=== PATIENT | male | born 1975 | race Caucasian/White ===

== ENCOUNTER 2021-02-27 08:48 | Outpatient (REF) | payer MEDICARE, MEDICAID, SELFPAY ==
--- NOTE | ~2021-02-27 | US_ITS ---
EXAMINATION: US RETROPERITONEAL LIMITED (RENAL ONLY) CLINICAL INFORMATION: Kidney stones. COMPARISON: Abdominal ultrasound 04/30/2018 CT abdomen 01/06/2008. TECHNIQUE: Real-time imaging of the kidneys. FINDINGS: RIGHT KIDNEY: 11.0 x 5.0 x 6.7 cm (SAG x AP x TRV). The kidney is normal in size, contour, and echogenicity. Renal cortical thickness is normal. No focal parenchymal lesions or hydronephrosis. There are 2 calculi in the midpole of the right kidney, each measuring 0.3 cm in maximum dimension. LEFT KIDNEY: 11.7 x 4.5 x 5.7 cm (SAG x AP x TRV). The kidney is normal in size, contour, and echogenicity. Renal cortical thickness is normal. No focal parenchymal lesions or hydronephrosis. There are 2 calculi in the midpole of the left kidney, and one calculus in the lower pole of left kidney, each measuring 0.3 cm in maximum dimension. US/US renal BI IMPRESSION: Bilateral renal calculi, measuring approximately 0.3 cm each, 2 on the right and 3 on the left. No hydronephrosis.
== END 2021-02-27 08:49 | disposition home or self-care (01) ==
LOC: HO.HMGCX 08:48
PROVIDERS: PCP Family Medicine; Visit Provider Nurse Practitioner
DX: R10.9 Unspecified abdominal pain (principal)
CPT/HCPCS: 76775

== ENCOUNTER 2021-03-06 09:24 | Outpatient (REF) | payer MEDICARE, MEDICAID, SELFPAY | END 2021-03-06 09:25 | disposition home or self-care (01) | LOC: HO.HMGCX 09:24 | PROVIDERS: PCP Family Medicine; Visit Provider Family Medicine | DX: Z13.89 Encounter for screening for other disorder (principal) ==

== ENCOUNTER 2021-03-07 08:24 | Outpatient (REF) | payer MEDICARE, MEDICAID, SELFPAY ==
--- NOTE | ~2021-03-07 | US_ITS ---
EXAMINATION: US PELVIS LIMITED (BLADDER) CLINICAL INFORMATION: Abdominal pain. Rule out stone.. COMPARISON: Previous CT of the abdomen and pelvis December 2007 TECHNIQUE: Real-time imaging of the bladder. FINDINGS: BLADDER: Well distended and normal. Bilateral ureteral jets are demonstrated. Prevoid bladder volume is 160 mL. Postvoid bladder volume is 41 mL. The prostate gland is upper normal in size measuring 4.3 x 2.9 x 4.2 cm, volume 28 mL. US/US bladder IMPRESSION: Small 41 mL postvoid bladder residual otherwise unremarkable exam.
== END 2021-03-07 08:25 | disposition home or self-care (01) ==
LOC: HO.HMGCX 08:24
PROVIDERS: PCP Family Medicine; Visit Provider Family Medicine
DX: R10.9 Unspecified abdominal pain (principal)
CPT/HCPCS: 76857

== ENCOUNTER 2023-11-19 08:14 | Outpatient (REF) | payer MEDICARE, MEDICAID, SELFPAY ==
[2023-11-19 11:14] LABS: MANUAL DIFF FLAG NO
[2023-11-19 11:23] LABS: Basophils Percent Auto 0.9 % (0-2); Eosinophils Absolute Auto 0.2 X10*3/uL (0.0-0.4); Eosinophils Percent Auto 3.6 % (0-4); Hematocrit 44.7 % (42.0-52.0); Hemoglobin 14.8 g/dl (14.0-18.0); Imm Gran Abs Auto 0.02 X10*3/uL (0.00-0.03); Imm Gran Pct Auto 0.4 % (0.0-0.4); Lymphocytes Absolute Auto 1.7 X10*3/uL (1.2-4.9); Lymphocytes Percent Auto 38.6 % (20-40); Mean Corpuscular HGB Conc 33.1 g/dl (31.0-36.0); Mean Corpuscular Hemoglobin 28.9 pg (27.0-33.0); Mean Corpuscular Volume 87.3 fL (80.0-98.0); Mean Platelet Volume 9.5 fL (9.4-12.4); Monocytes Absolute Auto 0.3 X10*3/uL (0.1-1.2); Monocytes Percent Auto 6.3 % (2-11); Neutrophils Absolute Auto 2.3 x10*3/uL (2.0-8.3); Neutrophils Percent Auto 50.2 % (45-73); Platelet Count 281 X10*3/uL (160-400); Red Blood Count 5.12 X10*6/uL (4.60-5.80); Red Cell Distribution Width 12.2 % (11.0-16.0); White Blood Count 4.5 X10*3/uL (4.8-10.8)
[2023-11-19 11:49] LABS: HIV AB/AG Nonreactive (Nonreactive); HIV Num 1 0.05 S/CO (0.00-0.99); ~Hepatitis C Antibody Nonreactive (Nonreactive)
[2023-11-19 11:54] LABS: Alanine Aminotransferase 20 U/L (0-40); Albumin Level 4.5 g/dL (3.5-5.0); Alkaline Phosphatase 63 U/L (39-117); Anion Gap 14 (12-20); Aspartate Amino Transferase 23 U/L (5-37); Bilirubin Direct 0.2 mg/dL (0.0-0.5); Bilirubin Total 0.5 mg/dL (0.0-1.0); Blood Urea Nitrogen 19 mg/dL (9-16); Calcium 9.6 mg/dL (8.4-10.2); Carbon Dioxide 27 mmol/L (22-29); Chloride 106 mmol/L (96-108); Cholesterol 184 mg/dL (<200); Estimated Glomerular Filt Rate > 60; Glucose Random 96 mg/dL (60-115); HDL Cholesterol 46 mg/dL (>40); LDL Cholesterol Calculated 112 mg/dL (<100); Magnesium 2.2 mg/dL (1.6-2.6); Potassium 4.7 mmol/L (3.3-5.1); Sodium 142 mmol/L (135-145); TSH reflex Free T4 1.26 uIU/mL (0.32-4.0); Total Protein 8.2 g/dL (6.5-8.0); Triglycerides 130 mg/dL (<150); Vitamin D 25-OH Total 62.5 ng/mL (>30)
[2023-11-23 16:24] LABS: Testosterone, Total 329 ng/dL (250-1100)
== END 2023-11-19 08:15 | disposition home or self-care (01) ==
LOC: HO.HHCL 08:14
PROVIDERS: Visit Provider Family Medicine
DX: R53.83 Other fatigue (principal); E78.5 Hyperlipidemia, unspecified; Z68.38 Body mass index [BMI] 38.0-38.9, adult; Z11.3 Encounter for screening for infections with a predominantly sexual mode of transmission
CPT/HCPCS: 36415; 80048; 80061; 80076; 82306; 83735; 84403; 84443; 85025; 85027; 86803; 87389

== ENCOUNTER 2024-04-28 10:32 | Outpatient (REF) | payer MEDICARE, MEDICAID, SELFPAY ==
[2024-04-28 12:22] LABS: Cholesterol 235 mg/dL (<200); HDL Cholesterol 38 mg/dL (>40); LDL Cholesterol Calculated 161 mg/dL (<100); Triglycerides 183 mg/dL (<150)
== END 2024-04-28 10:33 | disposition home or self-care (01) ==
LOC: HO.HHCL 10:32
PROVIDERS: Visit Provider Family Medicine
DX: E78.5 Hyperlipidemia, unspecified (principal)
CPT/HCPCS: 36415; 80061

== ENCOUNTER 2024-09-10 07:58 | Outpatient (REF) | payer MEDICARE, MEDICAID, SELFPAY ==
--- OUTSIDE RECORDS SUMMARY | 2024-09-10 08:02 | XMS_ITS | Encounter Summary ---
Author Organization [employer] Address [address] [facility] 7[address] [place] [address] Care Team Providers Care Care Information Associate Name Role Phone Loida Oliver MD Primary Care Provider +1- [phone] Encounter Details Date Type Department Care Team (Late st Contact Info) Description 08/06/2022 Abstract [facility] [address], [place] [phone] Loida Oliver MD [address] [place], [place] [phone] Social History Tobacco Use Types Packs/Day Years Used Date Smoking Tobacco: Never Assessed Sex and Gender Information Value Date Recorded Sex Assigned at Male 04/29/2022 10:14 AM EDT Legal Sex Male 10:14 AM EDT Gender Identity Male 04/29/2022 10:14 AM EDT Sexual Orientation Choose not to disclose 2021 10:14 AM EDT documented as of this encounter Plan of Treatment Not on file documented as of this encounter Procedures Procedure Name Priority Date/Time Associated Diagnosis Comments COLONOSCOPY Routine 01/09/2022 documented in this encounter Results * Colonoscopy (01/09/2022) Colonoscopy Hyperplastic polyp Dr. Wilson us Historical Provider HEALTH MAINTENANCE Final Result documented in this encounter Visit Diagnoses Not on filedocumented in this encounter Care Teams Care Information Associate Relationship Specialty Start Date End Date Loida Oliver MD [address] [place], [place] [phone] PCP - General Family Medicine 06/30/18 documented as of this encounter
--- OUTSIDE RECORDS SUMMARY | 2024-09-10 08:02 | XMS_ITS | Clinical Summary ---
Author Organization [employer] Address [address] [facility] 7[address] [place] [address] Care Team Providers Care Customer Sales Consultant Name Role Phone Loida Oliver MD Primary Care Provider +1- [phone] Allergies Active Allergy Reactions Criticality Noted Date Comments Ciprofloxacin Shortness of breath High 10/13/2019 Other reaction(s): shortness of breath Shellfish Allergy Anaphylaxis High 08/22/2017 Medications Fluticasone-Salm eterol (Advair Diskus) 500-50 MCG/ACT aerosol powderIndication s:Severe persistent asthma without complication Refills 0, Maintenance, 07/30/23 13:20:00 EST 07/30/19 24 Active fluticasone (Flonase Allergy Relief) 50 MCG/ACT nasal sprayIndications :Seasonal allergies 50 mcg. 10/25/19 24 Active EPINEPHrine (EpiPen 2-Quang) 0.3 MG/0.3ML injection syringeIndicatio ns:Anaphylactic shock due to seafood, sequela inject 0.3 milliliter (0.3MG) by intramuscular route once as needed for anaphylaxis 2 each 1 04/28/20 24 Active omalizumab (Xolair) 150 MG/ML injectionIndicat ions:Severe persistent asthma, unspecified whether complicated Inject under the skin every 14 (fourteen) days. Active levalbuterol (Xopenex) 45 MCG/ACT inhalerIndicatio ns:Severe persistent asthma, unspecified whether complicated Inhale. Active atorvastatin (Lipitor) 40 MG tabletIndication s:Dyslipidemia Take 1 tablet (40 mg) by mouth Once per day. 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 -allergy desensitization injections facilitated by Dr. Michael -prescribed refill ClwKhh20/30/24 Hypogonadism in male 09/01/2024 Overview (09/01/2024): Pt getting testosterone from [facility] since May 2024. Reports testosterone was 289. -check labs Assessment & Plan (09/01/2024 12:59 PM EST): Pt getting testosterone from [facility] since May 2024. Reports testosterone was 289. -check labs Class 1 obesity due to exces s calories with serious comorbidity and body mass index (BMI) of 30.0 to 30.9 in adult 04/28/2024 Seasonal allergies 04/28/2024 Overview (04/28/2024): Controlled on Flonase. Assessment & Plan (04/28/2024 9:27 AM EDT): Controlled on Flonase. Other specified health status 05/06/2023 Overview (04/28/2024): -next physical exam due after 04/28/25 -eye care facilitated by [facility] -dental home is at the [facility] -health care proxy given and filed 04/28/24 Assessment & Plan (04/28/2024 9:36 AM EDT): -next physical exam due after 04/28/25 -eye care facilitated by [facility] -dental home is at the [facility] -health care proxy given and filed 04/28/24 Assessment & Plan (05/07/2023 10:46 AM EST): -next physical exam due after 05/07/2024 -eye care facilitated by [facility] -dental home is t the [facility] Finding of above normal blood pressure 2 05/06/2023 Drug-induced gynecomastia 12/08/20172022 Dyslipidemia 09/02/2012 05/06/2023 Overview (09/01/2024): Lab Results Component Value Date CHOL 235 (H) 04/28/2024 CHOL 184 11/19/2023 TRIG 183 (H) 04/28/2024 TRIG 130 11/19/2023 HDL 38 (L) 04/28/2024 HDL 46 11/19/2023 LDLCHOLCAL 161 (H) 04/28/2024 LDLCHOLCAL 112 (H) 11/19/2023 -continue lifestyle modifications -self discontinued atorvastatin 20 mg but chol ws high -atorvastatin 40mg restarted 04/29/24 Assessment & Plan (04/28/2024 9:26 AM EDT): Lab Results Component Value Date CHOL 184 11/19/2023 TRIG 130 11/19/2023 HDL 46 11/19/2023 LDLCHOLCAL 112 (H) 11/19/2023 -continue lifestyle modifications -self discontinued atorvastatin 20 mg, will hod off until new LFTs -ordered LFT's today 04/28/24 Obstructive sleep apnea syndrome 09/02/2012 05/06/2023 Overview (04/28/2024): -tolerant of CPAP -followed by Dr. Murtaza Hu II, MD at [facility] Assessment & Plan (04/28/2024 9:36 AM EDT): -tolerant of CPAP -followed by [facility] Murta[facility] II[facility] Seafood allergy, anaphylaxis 09/02/201212/2022 Overview (04/28/2024): -allergy desensitization injections facilitated by Dr. Alec landaverde has epinephrine on hand, due for new one -prescribed refill 04/28/24 Assessment & Plan (04/28/2024 9:27 AM EDT): -allergy desensitization injections facilitated by Dr. 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 Murtaza Hu II, MD at [facility], seen on 03/19/24 -latest appt with manuscripts curator 05/04/24. CT chest showed no evidence of pulmonary hypertension or embolism, a tiny 2mm left upper lobe nodule, although pt does not smoke, no further follow-up needed. Pt is benefiting from Xolair injections. Has had no serious asthma exacerbations. Follow-up in 6 months and continue Xolair infusions. 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 Murtaza Hu II, MD at [facility], seen last 03/19/24 Resolved Problems Problem Noted Date Diagnosed Date Resolved Date Colon cancer screening 05/06/202305/07 Encounters Date Type Department Care Team Description 09/01/2024 10:15 AM EST Telemedicine [facility] [address] [place] [address] Loida Oliver MD Hypogonadism in male (Primary Dx); Severe persistent asthma, unspecified whether complicated; Dietary counseling; Exercise counseling; Class 1 obesity due to excess calories with serious comorbidity and body mass index (BMI) of 30.0 to 30.9 in adult; Dyslipidemia 09/01/2024 Travel 08/26/2024 Telephone [facility] [address] [place] [address] Loida Oliver MD Appointment Confirmation (Marino book the appt on at 10:15 via phone.) 08/26/2024 Travel 07/05/2024 Telephone [facility] [address] [facility] [place] [address] Faith Caba, diver helper from Last 3 Months Immunizations Name Administration Dates Next Due Hep B, adult 04/28/2024,05/07/2023 INFLUENZA VACCINE QUADRIVALE NT RECOMBINANT PRESERVATIVE FREE RIV4 03/15/2021 Influenza injectable quadrivalent preservative f ree 03/06/2018,02/28/2015 Influenza, IIV3, injectable 04/06/2023, 0 Influenza, Split (incl. purified surface antigen ) 02/11/2014 Influenza, intradermal, quad rivalent, preservative free 04/08/2017 Influenza, seasonal, injectable, preservative fr ee 04/28/2024 Moderna Covid-19 Vaccine 12+ 12/17/2020,11/17/19 21 Pneumococcal Conjugate PCV 13 09/11/2017 Pneumococcal Polysaccharide PPSV23 08/11/2014, Tdap 05/07/2023,09/25/2011 Social History Tobacco Use Types Packs/Day Years Used Date Smoking Tobacco: Never Smokeless Tobacco: Never Tobacco Cessation:Counseling Given: Not Answered Depression Answer Date Recorded Patient Health Questionnaire-9 Score 0 05/07/2023 Patient Health Questionnaire-9 Score 0 05/07/2023 Last PHQ-9: Questionnaire Data Not on file 1 07/07/2022 Housing Stability Answer Date Recorded What is your housing situation today? I have ashley cyr 04/15/[address] you li ve. Do you have problems with any of the following? None of the above 04/15/2024 Food Insecurity Answer Date Recorded Within the past 12 months, y ou worried that your food would run out before you got money to buy more: Never True 04/28/2023 Within the past 12 months,th e food you bought just didn't last and you didn't have enough money to get more: Never True Transportation Answer Date Recorded In the past 12 months, has l ack of transportation kept you from medical appts, meetings, work or from getting things needed for daily living? No 04/28/2023 Utilities Answer Date Recorded In the past 12 months, has t he electric, gas, oil or water company threatened to shut off services in your home? No 04/28/2023 Depression Answer Date Recorded Patient Health Questionnaire-2 Score 0 05/07/2023 Internet Access Answer Date Recorded Internet Access Q1 Yes 04/15/2024 Internet Access Q2 Not on file 04/15/2024 Sex and Gender Information Value Date Recorded Sex Assigned at Male 04/29/2022 10:14 AM EDT Legal Sex Male 10:14 AM EDT Gender Identity Male 04/29/2022 10:14 AM EDT Sexual Orientation Choose not to disclose 2021 10:14 AM EDT Last Filed Vital Signs Vital Sign Reading Time Taken Comments Blood Pressure 130/68 04/28/2024 9:08 AM EDT Pulse 58 04/28/2024 9:08 AM EDT Temperature 36.4 ??C (97.6 ??F) 04/28/2024 9:08 AM ED T Respiratory Rate 18 04/28/2024 9:08 AM EDT Oxygen Saturation 98% 04/28/2024 9:08 AM EDT Inhaled Oxygen Concentration - - Weight 98 kg (216 lb) 04/28/2024 9:08 AM EDT Height 177.8 cm (5' 10 ) 04/28/2024 9:08 AM EDT Body Mass Index 30.99 04/28/2024 9:08 AM EDT Plan of Treatment Health Maintenance Due Date Last Done Comments CT Colonography 1975 FIT DNA/Cologuard 1975 FIT 1975 FOBT 1975 Sigmoidoscopy 1975 Depression Screening 05/07/2024 05/07/2023, 05/07/20 23 Hepatitis B Vaccines (3 of 3 - 19+ 3-dose series) 06/23/2024 04/28/2024, 05/07/2023 Pneumococcal Vaccine: Pediatrics (0 to 5 Years) and At-Risk Patients (6 to 49) Years) (3 of 3 - PCV20 or PCV21) 2025 09/11/2017, 08/11/2014, 03/02/2009 Zoster Vaccines (1 of 2) 2025 SDOH Screening 04/15/2025 04/15/2024 Alcohol/Substance Use Screening 04/28/2025 04/28/2024 COVID-19 Vaccine (3 - season) 2025 12/17/2020, 11/16/2020 Postponed from 02/29/2024 (Patient Refused) Tobacco Screening 04/28/2025 04/28/2024 Family Planning (PISQ) 09/01/2025 09/01/2024 Lipid Panel 04/28/2029 04/28/2024, 10/29, 12/19/2021, Additional history exists Colonoscopy 01/10/2032 01/09/2022 Colorectal Cancer Screening 01/10/2032 DTaP/Tdap/Td Vaccines (3 - Td or Tdap) 05/07/2033 05/07/2023, 09/25/2011 RSV Patients and Patients Aged 60 years or older (1 - 1-dose 75+ series) 2050 HIV Screening Completed 11/19/2023 Hepatitis C Screening Completed 11/19/2023 Influenza Vaccine Completed 04/28/2024, , 04/02/2023, Additional history exists HIB Vaccines Aged Out No longer eligi ble based on patient's age to complete this topic HPV Vaccines Aged Out No longer eligi ble based on patient's age to complete this topic Hepatitis A Vaccines Aged Out No long er eligible based on patient's age to complete this topic IPV Vaccines Aged Out No longer eligi ble based on patient's age to complete this topic Meningococcal Vaccine Aged Out No debo finesse eligible based on patient's age to complete this topic RSV under 20 months Aged Out No longe r eligible based on patient's age to complete this topic Rotavirus Vaccines Aged Out No longer eligible based on patient's age to complete this topic Procedures Procedure Name Priority Date/Time Associated Diagnosis Comments LIPID PANEL, STANDARD Routine 04/28/2024 10:33 AM EDT Dyslipidemia HEPATITIS C AB W/REFL TO HCV RNA, QN, PCR Routine 11/19/2023 8:16 AM EDT Routine screening for STI (sexually transmitted infection) HIV 1/2 ANTIGEN/ANTIBODY, FOURTH GENERATION W/RFL Routine 11/19/2023 8:16 AM EDT Routine screening for STI (sexually transmitted infection) HM COLONOSCOPY Routine 01/09/2022 from Last 3 Months or Most Recently Relevant to Health Maintenance Results * (ABNORMAL) Lipid Panel, Standard (04/28/2024 10:33 AM EDT) Triglycerides 183(H) <150 mg/dL [facility] Comment:Desirable Triglyceri de: less than 150 mg/dLBorderline High Triglyceride 150-199 mg/dLHigh Triglyceride: 200-499 mg/dLVery High Triglyceride: greater than or equal to 5OO mg/dL Cholesterol 235(H) <200 mg/dL [facility] Comment:Desirable Cholestero l: less than 200 mg/dLBorderline High Cholesterol: 200-239 mg/dLHigh Cholesterol: greater than 239 mg/dL LDL Cholesterol Calculated 161(H) <100 mg/dL [facility] Comment:Desirable LDL: less than 100 mg/dLNear Optimal/Above Optimal LDL: 110- 129 mg/dLBorderline High LDL: 130-159 mg/dLHigh LDL: 160-189 mg/dLVery High LDL: greater than or equal to 190 mg/dL HDL Cholesterol 38(L) >40 mg/dL [facility] Comment:Desirable HDL: great er than 40 mg/dL Note: This HDL assay may give artificially low results in patients with liver disease. Blood Venous blood specimen / Unknown 04/28/2024 10:33 AM EDT 04/28/2024 11:36 AM EDT us Loida Oliver MD LAB BLOOD ORDERABLES Final Result [facility] [address] [place] [phone] [phone] * Hepatitis C Antibody with Reflex to HCV, RNA, Quantitative, Real-Time PCR (11/19/2023 8:16 AM EDT) Hepatitis C Antibody Nonreactive Nonreactive [facility] Comment:Antibodies to HCV no t detected; does not exclude early acuteHCV infection. Blood Venous blood specimen / Unknown 11/19/2023 8:16 AM EDT 11/19/2023 11:04 AM EDT Loida Oliver MD LAB BLOOD ORDERABLES Final Result Performing Organization Address City/[facility]/ZIP Co de Phone Number [facility] [address] [place] [address] [phone] * HIV-1/2 Antigen and Antibodies, Fourth Generation, with Reflexes (11/19/2023 8:16 AM EDT) [facility] HIV AB/AG Nonreactive Nonreactive [facility] Comment:HIV-1 p24 Ag and/or HIV-1/HIV-2 Ab not detected.A test result that is nonreactive does not exclude thepossibility of exposure to or infection with HIV-1 and/orHIV-2. Nonreactive results in this assay for individualswith prior exposure to HIV-1 and/or HIV-2 may be due toantigen and antibody levels that are below the limit ofdetection of this assay.The [employer] HIV Ag/Ab Combo assay result andsupplemental assay results should be interpreted inconjunction with the patient's clinical presentation,history and other laboratory results. If the results areinconsistent with clinical evidence, additional testing issuggested to confirm the result. Blood Venous blood specimen / Unknown 11/19/2023 8:16 AM EDT 11/19/2023 11:04 AM EDT Loida Oliver MD LAB BLOOD ORDERABLES Final Result Performing Organization Address City/[facility]/ZIP Co de Phone Number [facility] [address] [place] [address] [phone] * Hm Colonoscopy (01/09/2022) Pathologist [facility] Colonoscopy Hyperplastic polyp Dr. Wilson Madina Whitten MD HEALTH MAINTENANCE Final Result from Last 3 Months or Most Recently Relevant to Health Maintenance Insurance [facility] STANDARD MEDICARE Advance Directives Documents on File Type Date Recorded Patient Engineering Lab Technician Expl anation Advance Directives and Living Will 04/29/2024 2:03 PM Health Care Proxy Care Teams Customer Sales Consultant Relationship Specialty Start Date End Date Benito, MD Loida [address] [place] [id number] PCP - General Family Medicine 06/30/18
--- OUTSIDE RECORDS SUMMARY | 2024-09-10 08:02 | XMS_ITS | Encounter Summary ---
Author Organization [employer] Address [address] [facility] [address] [place] [address] Care Team Providers Care Advertising Columnist Name Role Phone Loida Oliver MD Primary Care Provider +1- [phone] Reason for Visit * Reason Onset Date Comments Appointment Confirmation 08/26/2024 Marino book the appt on at 10:15 via phone. Encounter Details Date Type Department Care Team ([facility] Contact Info) Description 08/26/2024 Telephone [facility] [address], [place] [phone] Loida Oliver MD [address] [place], [place] [phone] Appointment Confirmation (Marino book the appt on at 10:15 via phone.) Social History Tobacco Use Types Packs/Day Years Used Date Smoking Tobacco: Never Smokeless Tobacco: Never Depression Answer Date Recorded Patient Health Questionnaire-9 [...] AM EDT documented as of this encounter Miscellaneous Notes * Telephone Encounter - Meeta Ho MA - 08/26/2024 1:30 PM EST Marino book the appt on at 10:15 via phone. documented in this encounter Plan of Treatment Not on file documented as of this encounter Visit Diagnoses Not on filedocumented in this encounter Additional Health Concerns Assessment Noted Time PHQ-9 Depression Total Score: 0 05/07/20 23 10:28 AM EST documented as of this encounter Care Teams Advertising Columnist Relationship Specialty Start Date End Date Loida Oliver MD [address] [place] [address] PCP - General Family Medicine 06/30/18 documented as of this encounter
--- OUTSIDE RECORDS SUMMARY | 2024-09-10 08:02 | XMS_ITS | Encounter Summary ---
Author Organization [employer] Address [address] [place] [address] Care Team Providers Care Liner Man Name Role Phone Loida Oliver MD Primary Care Provider +1- [phone] Encounter Details Date Type Department Care Team (Latest Contact Info) Description 09/01/2024 Travel Social History Tobacco Use Types Packs/Day Years [...] documented as of this encounter Care Teams Liner Man Relationship Specialty Start Date End Date Loida Oliver MD [address] [place] [address] PCP - General Family Medicine 06/30/18 documented as of this encounter
--- OUTSIDE RECORDS SUMMARY | 2024-09-10 08:02 | XMS_ITS | Encounter Summary ---
Author Organization [employer] Address [address] [facility] [address] [place] [address] Care Team Providers Care Extension Service Advisor Name Role Phone Loida Oliver MD Primary Care Provider +1- [phone] Encounter Details Date Type Department Care Team (Late st Contact Info) Description 11/05/2023 Orders Only [facility] MEDICINE [address], [place] [phone] Loida Oliver MD [address] [place], [place] [phone] Other fatigue (Primary Dx); Acute anxiety; Routine screening for STI (sexually transmitted infection); Dyslipidemia; Severe persistent asthma without complication; Body mass index (BMI) 38.0-38.9, adult Social History Tobacco Use Types Packs/Day Years Used Date Smoking Tobacco: Never Smokeless Tobacco: Never Depression Answer Date Recorded Patient Health Questionnaire-9 Score 0 05/07/2023 Patient Health Questionnaire-9 Score 0 05/07/2023 Last PHQ-9: Questionnaire Data Not on file 1 07/07/2022 Housing Stability Answer Date Recorded What is your housing situation today? I am not s ure 04/28/[address] you li ve. Do you have problems with any of the following? None of the above 04/28/2023 Food Insecurity Answer Date Recorded Within the [...] Recorded Patient Health Questionnaire-2 Score 0 05/07/2023 Sex and Gender Information Value Date Recorded Sex Assigned at Male 04/29/2022 10:14 AM EDT Legal Sex Male 10:14 AM EDT Gender Identity Male 04/29/2022 10:14 AM EDT Sexual Orientation Choose not to disclose 2021 10:14 AM EDT documented as of this encounter Plan of Treatment Not on file documented as of this encounter Procedures Procedure Name Priority Date/Time Associated Diagnosis Comments VITAMIN D,25-OH,TOTAL,IA Routine 11/19/2023 8:16 AM EDT Other fatigue Body mass index (BMI) 38.0-38.9, adult TSH W/REFLEX TO FT4 Routine 11/19/2023 8 :16 AM EDT Other fatigue CBC WITH AUTO DIFFERENTIAL Routine 11/19/2023 8:16 AM EDT Other fatigue HEPATITIS C AB W/REFL TO HCV RNA, QN, PCR Routine 11/19/2023 8:16 AM EDT Routine screening for STI (sexually transmitted infection) HIV 1/2 ANTIGEN/ANTIBODY, FOURTH GENERATION W/RFL Routine 11/19/2023 8:16 AM EDT Routine screening for STI (sexually transmitted infection) CBC Routine 11/19/2023 8:16 AM EDT Other fatigue TESTOSTERONE, TOTAL, MALES (ADULT), IA Routine 11/19/2023 8:16 AM EDT Other fatigue MAGNESIUM Routine 11/19/2023 8:16 AM EDT Other fatigue HEPATIC FUNCTION PANEL Routine 11/19/2023 8:16 AM EDT Dyslipidemia LIPID PANEL, STANDARD Routine 11/19/2023 8:16 AM EDT Dyslipidemia BASIC METABOLIC PANEL Routine 11/19/2023 8:16 AM EDT Other fatigue documented in this encounter Results * Hepatitis C Antibody with Reflex to HCV, RNA, Quantitative, Real-Time PCR (11/19/2023 8:16 AM EDT) Hepatitis C Antibody Nonreactive Nonreactive [facility] Comment:Antibodies to HCV no t detected; does not exclude early acuteHCV infection. Blood Venous blood specimen / Unknown 11/19/2023 8:16 AM EDT 11/19/2023 11:04 AM EDT Loida Oliver MD LAB BLOOD ORDERABLES Final Result [facility] [address] [place] [phone] * HIV-1/2 Antigen and Antibodies, Fourth Generation, with Reflexes (11/19/2023 8:16 AM EDT) HIV AB/AG Nonreactive Nonreactive [facility] Comment:HIV-1 p24 Ag and/or HIV-1/HIV-2 Ab not detected.A test result that is nonreactive does not exclude thepossibility of exposure to or infection with HIV-1 and/orHIV-2. Nonreactive results in this assay for individualswith prior exposure to HIV-1 and/or HIV-2 may be due toantigen and antibody levels that are below the limit ofdetection of this assay.The [email or web address] HIV Ag/Ab Combo assay result andsupplemental assay results should be interpreted inconjunction with the patient's clinical presentation,history and other laboratory results. If the results areinconsistent with clinical evidence, additional testing issuggested to confirm the result. Blood Venous blood specimen / Unknown 11/19/2023 8:16 AM EDT 11/19/2023 11:04 AM EDT Loida Oliver MD LAB BLOOD ORDERABLES Final Result Performing Organization Address [facility]/ZIP Co de Phone Number [facility] [address] [place] [phone] * Vitamin D, 25-Hydroxy, Total, Immunoassay (11/19/2023 8:16 AM EDT) Vitamin D 25-OH Total 62.5 >30 ng/mL [facility] Comment:Health Based Referen ce Values*< 20 ng/mL Vrmzdyzye21-62 ng/mL Insufficient> 30 ng/mL Sufficient*Atiya SANCHES. N Engl J Med. 2007;357:266-280Care must be taken in interpreting Vitamin D results fromdifferent laboratories and methodologies. Published datademonstrated that results from patients undergoinghemodialysis may show a negative bias when tested withvarious automated 25-OH vitamin D assays when compared toLC-MS/MS.When testing samples from patients whose predominant form ofVitamin D is Vitamin D2, such as patients receiving VitaminD2 supplementation, results that are subtherapeutic shouldbe confirmed with another method such as LC-MS/MS. Blood 11/19/2023 8:16 AM EDT 11/19/2023 11:04 AM EDT Loida Oliver MD LAB BLOOD ORDERABLES Final Result Performing Organization Address [facility]/ZIP Co de Phone Number [facility] [address] [place] [phone] * CBC auto differential (11/19/2023 8:16 AM EDT) Neutrophils Percent Auto 50.2 45 - 73 % [facility] Imm Gran Pct Auto 0.4 0.0 - 0.4 % [facility] Lymphocytes Percent Auto 38.6 20 - 40 % [facility] Monocytes Percent Auto 6.3 2 - 11 % [facility] Eosinophils Percent Auto 3.6 0 - 4 % [facility] Basophils Percent Auto 0.9 0 - 2 % [facility] Neutrophils Absolute Auto 2.3 2.0 - 8.3 x10*3/uL [facility] Imm Gran Abs Auto 0.02 0.00 - 0.03 X10*3/uL [facility] Lymphocytes Absolute Auto 1.7 1.2 - 4.9 X10*3/uL [facility] Monocytes Absolute Auto 0.3 0.1 - 1.2 X10*3/uL [facility] Eosinophils Absolute Auto 0.2 0.0 - 0.4 X10*3/uL [facility] Basophils Absolute Auto 0.0 0.0 - 0.2 X10*3/uL [facility] Blood Venous blood specimen / Unknown 11/19/2023 8:16 AM EDT 11/19/2023 11:04 AM EDT Loida Oliver MD LAB BLOOD ORDERABLES Final Result Performing Organization Address City/[facility]/ZIP Co de Phone Number [facility] [address] [place] [phone] * TSH with Reflex to Free T4 (11/19/2023 8:16 AM EDT) Pathologist [facility] TSH reflex Free T4 1.26 0.32 - 4.0 uIU/mL [facility] Blood 11/19/2023 8:16 AM EDT 11/19/2023 11:04 AM EDT Loida Oliver MD LAB BLOOD ORDERABLES Final Result Performing Organization Address City/[facility]/ZIP Co de Phone Number [facility] [address] [place] [phone] * (ABNORMAL) Basic Metabolic Panel (11/19/2023 8:16 AM EDT) Pathologist [facility] Sodium 142 135 - 145 mmol/L [facility] Potassium 4.7 3.3 - 5.1 mmol/L [facility] Chloride 106 96 - 108 mmol/L [facility] Carbon Dioxide 27 22 - 29 mmol/L [facility] Anion Gap 14 12 - 20 [facility] Urea Nitrogen (BUN) 19(H) 9 - 16 mg/dL [facility] Creatinine, Serum 0.95 0.5 - 1.4 mg/dL [facility] Estimated Glomerular Filt Rate >60 [facility] Comment:NOTE: For -Am erican individuals, multiply the result by 1.210.Chronic Kidney Disease: Estimated GFR < 60 mL/min/1.80u0Essjmz Kidney Disease: Estimated GFR < 15 mL/min/1.73m2 Glucose 96 60 - 115 mg/dL [facility] Calcium 9.6 8.4 - 10.2 mg/dL [facility] Blood Venous blood specimen / Unknown 11/19/2023 8:16 AM EDT 11/19/2023 11:04 AM EDT us Loida Oliver MD LAB BLOOD ORDERABLES Final Result [facility] [address] [place] [phone] * (ABNORMAL) Lipid Panel, Standard (11/19/2023 8:16 AM EDT) Triglycerides 130 <150 mg/dL [facility] Comment:Desirable Triglyceri de: less than 150 mg/dLBorderline High Triglyceride 150-199 mg/dLHigh Triglyceride: 200-499 mg/dLVery High Triglyceride: greater than or equal to 5OO mg/dL Cholesterol 184 <200 mg/dL [facility] Comment:Desirable Cholestero l: less than 200 mg/dLBorderline High Cholesterol: 200-239 mg/dLHigh Cholesterol: greater than 239 mg/dL LDL Cholesterol Calculated 112(H) <100 mg/dL [facility] Comment:Desirable LDL: less than 100 mg/dLNear Optimal/Above Optimal LDL: 110- 129 mg/dLBorderline High LDL: 130-159 mg/dLHigh LDL: 160-189 mg/dLVery High LDL: greater than or equal to 190 mg/dL HDL Cholesterol 46 >40 mg/dL [facility] Comment:Desirable HDL: great er than 40 mg/dL Note: This HDL assay may give artificially low results in patients with liver disease. Blood Venous blood specimen / Unknown 11/19/2023 8:16 AM EDT 11/19/2023 11:04 AM EDT Loida Oliver MD LAB BLOOD ORDERABLES Final Result Performing Organization Address [facility]/ZIP Co de Phone Number [facility] [address] [place] [phone] * Magnesium (11/19/2023 8:16 AM EDT) Magnesium 2.2 1.6 - 2.6 mg/dL [facility] Blood Venous blood specimen / Unknown 11/19/2023 8:16 AM EDT 11/19/2023 11:04 AM EDT Loida Oliver MD LAB BLOOD ORDERABLES Final Result Performing Organization Address [facility] de Phone Number [facility] [address] [place] [phone] * Testosterone, Total, males (Adult), IA (11/19/2023 8:16 AM EDT) Testosterone, Total 329 250 - 1100 ng/dL [facility] Comment:For additional infor laura, please refer tohttp://education.Ready.[employer]/faq/[email or web address](This link is being provided for informational/educational purposes only.)This test was developed and its analytical performancecharacteristics have been determined by [email or web address] [place], [place]. It hasnot been cleared or approved by the U.S. Food and DrugAdministration. This assay has been validated pursuantto the CLIA regulations and is used for clinicalpurposes.THIS TEST WAS PERFORMED AT:[employer] [id number] [place] [address]UKEPCLAINDIRA CHEEK MD,PHD Blood Venous blood specimen / Unknown 11/19/2023 8:16 AM EDT 11/19/2023 11:04 AM EDT Loida Oliver MD LAB BLOOD ORDERABLES Final Result Performing Organization Address City/[facility]/ZIP Co de Phone Number [facility] [address] [place] [phone] * (ABNORMAL) CBC (11/19/2023 8:16 AM EDT) White Blood Count 4.5(L) 4.8 - 10.8 X10*3/uL [facility] Red Blood Count 5.12 4.60 - 5.80 X10*6/uL [facility] Hemoglobin 14.8 14.0 - 18.0 g/dl [facility] Hematocrit 44.7 42.0 - 52.0 % [facility] Mean Corpuscular Volume 87.3 80.0 - 98.0 fL [facility] Mean Corpuscular Hemoglobin 28.9 27.0 - 33.0 pg [facility] Mean Corpuscular HGB Conc 33.1 31.0 - 36.0 g/dl [facility] Red Cell Distribution Width 12.2 11.0 - 16.0 % [facility] Platelet Count 281 160 - 400 X10*3/uL [facility] Mean Platelet Volume 9.5 9.4 - 12.4 fL [facility] NRBC Pct Auto 0.0 0.0 - 0.2 /100WBC [facility] NRBC Abs Auto 0.000 0.0 - 0.012 X10*3/uL [facility] Blood Venous blood specimen / Unknown 11/19/2023 8:16 AM EDT 11/19/2023 11:04 AM EDT Loida Oliver MD LAB BLOOD ORDERABLES Final Result [facility] [address] [place] [phone] * (ABNORMAL) Hepatic Function Panel (11/19/2023 8:16 AM EDT) Bilirubin, Total 0.5 0.0 - 1.0 mg/dL [facility] Bilirubin, Direct 0.2 0.0 - 0.5 mg/dL [facility] Aspartate Amino Transferase 23 5 - 37 U/L [facility] Alanine Aminotransferase 20 0 - 40 U/L [facility] Total Protein 8.2(H) 6.5 - 8.0 g/dL [facility] Albumin Level 4.5 3.5 - 5.0 g/dL [facility] Alkaline Phosphatase 63 39 - 117 U/L [facility] Blood Venous blood specimen / Unknown 11/19/2023 8:16 AM EDT 11/19/2023 11:04 AM EDT us Loida Oliver MD LAB BLOOD ORDERABLES Final Result [facility] [address] [place] [phone] documented in this encounter Visit Diagnoses Diagnosis Other fatigue- Primary Acute anxiety Routine screening for STI (sexually transmitted infection) Screening examination for venereal disease Dyslipidemia Other and unspecified hyperlipidemia Severe persistent asthma without complication Body mass index (BMI) 38.0-38.9, adult documented in this encounter Additional Health Concerns Assessment Noted Time PHQ-9 Depression Total Score: 0 05/07/20 23 10:28 AM EST documented as of this encounter Care Teams Extension Service Advisor Relationship Specialty Start Date End Date Loida Oliver MD [address] [place] [phone] PCP - General Family Medicine 06/30/18 documented as of this encounter
--- OUTSIDE RECORDS SUMMARY | 2024-09-10 08:02 | XMS_ITS | Encounter Summary ---
Author Organization [employer] Address [address] [facility] [address] [place] [address] Care Team Providers Care Soil Specialist Name Role Phone Loida Oliver MD Primary Care Provider +1- [phone] Encounter Details Date Type Department Care Team (Late st Contact Info) Description 09/01/2024 10:15 AM EST Telemedicine [facility] MEDICINE [address] [place] [address] Loida Oliver MD [address] [place] [address] Hypogonadism in male (Primary Dx); Severe persistent asthma, unspecified whether complicated; Dietary counseling; Exercise counseling; Class 1 obesity due to excess calories with serious comorbidity and body mass index (BMI) of 30.0 to 30.9 in adult; Dyslipidemia Social History Tobacco Use Types Packs/Day Years [...] AM EDT documented as of this encounter Progress Notes * Loida Oliver MD - 09/01/2024 10:15 AM EST Subjective Patient ID: Juancarlos oH is a 49 y.o. male with PMHx of severe asthma, obesity and dyslipidemia who presents for follow up cholesterol. Pt reports he started getting testosterone injections in May of 2024 and i feet great but has concerns. He is getting medication form [facility]. He repots his testosterone with them was 289. He reports he has labs in the future and I asked him to please have lab ml copy to me. Problem List Items Addressed This Visit Hypogonadism in male - Primary Pt getting testosterone from [facility] since May 2024. Reports testosterone was 289. -check labs Relevant Orders Lipid Panel, Standard Hepatic Function Panel CBC auto differential Severe persistent asthma Class 1 obesity due to excess calories with serious comorbidity and body mass index (BMI) of 30.0 to 30.9 in adult Dyslipidemia Relevant Orders Lipid Panel, Standard Hepatic Function Panel CBC auto differential Other Visit Diagnoses Dietary counseling Exercise counseling Patient gave verbal consent to be seen in this manner. A complete assessment and plan is detailed in the note, all of which were conducted remotely using virtual audio technology. Patient identity was verbally confirmed with 2 identifiers at the start of the visit. Patient verbalized being located in the [facility] during the televisit. Provider was located at a secure location duringthe visits. I identified myself and credentials. Pt consented to telephone visit, and understand that they have the option to seek in-person care. I, Angelita Langford, am serving as a scribe to document services personally performed by Dr. Preciado, based on the patient's response to questions by provider and providers statements to me. documented in this encounter Miscellaneous Notes * Assessment & Plan Note - Loida Oliver MD - 09/01/2024 12:59 PM EST Associated Problem(s): Hypogonadism in male Pt getting testosterone from [facility] since May 2024. Reports testosterone was 289. -check labs documented in this encounter Plan of Treatment Scheduled Orders Name Type Priority Associated Diagnoses Orde r Schedule Lipid Panel, Standard Lab Routine Dyslipidemia Hypogonadism in male Expected: 09/01/2024 (Approximate), Expires: 09/01/2025 Hepatic Function Panel Lab Routine Dyslipidemia Hypogonadism in male Expected: 09/01/2024 (Approximate), Expires: 09/01/2025 CBC auto differential Lab Routine Dyslipidemia Hypogonadism in male Expected: 09/01/2024, Expires: 09/01/2025 documented as of this encounter Visit Diagnoses Diagnosis Hypogonadism in male- Primary Severe persistent asthma, unspecified whether complicated Dietary counseling Dietary surveillance and counseling Exercise counseling Class 1 obesity due to excess calories with serious comorbidity and body mass index (BMI) of 30.0 to 30.9 in adult Dyslipidemia Other and unspecified hyperlipidemia documented in this encounter Additional Health Concerns Assessment Noted Time PHQ-9 Depression Total Score: 0 05/07/20 23 10:28 AM EST documented as of this encounter Care Teams Soil Specialist Relationship Specialty Start Date End Date Loida Oliver MD [address] [place] [phone] PCP - General Family Medicine 06/30/18 documented as of this encounter
--- OUTSIDE RECORDS SUMMARY | 2024-09-10 08:02 | XMS_ITS | Encounter Summary ---
Author Organization [employer] Address [address] [facility] [address] [place] [address] Care Team Providers Care Residential Framing Carpenter Name Role Phone Loida Oliver MD Primary Care Provider +1- [phone] Encounter Details Date Type Department Care Team (Latest Contact Info) Description 08/26/2024 Travel Social History Tobacco Use Types Packs/Day [...] documented as of this encounter Care Teams Residential Framing Carpenter Relationship Specialty Start Date End Date Loida Oliver MD [address] [place] [address] PCP - General Family Medicine 06/30/18 documented as of this encounter
[2024-09-10 11:23] LABS: MANUAL DIFF FLAG NO
[2024-09-10 11:38] LABS: Basophils Percent Auto 0.5 % (0-2); Eosinophils Absolute Auto 0.2 X10*3/uL (0.0-0.4); Hematocrit 47.8 % (42.0-52.0); Hemoglobin 15.6 g/dl (14.0-18.0); Imm Gran Abs Auto 0.02 X10*3/uL (0.00-0.03); Imm Gran Pct Auto 0.3 % (0.0-0.4); Lymphocytes Absolute Auto 2.3 X10*3/uL (1.2-4.9); Lymphocytes Percent Auto 35.7 % (20-40); Mean Corpuscular HGB Conc 32.6 g/dl (31.0-36.0); Mean Corpuscular Hemoglobin 28.8 pg (27.0-33.0); Mean Corpuscular Volume 88.2 fL (80.0-98.0); Mean Platelet Volume 9.8 fL (9.4-12.4); Monocytes Absolute Auto 0.5 X10*3/uL (0.1-1.2); Monocytes Percent Auto 7.3 % (2-11); Neutrophils Absolute Auto 3.4 x10*3/uL (2.0-8.3); Neutrophils Percent Auto 53.2 % (45-73); Platelet Count 246 X10*3/uL (160-400); Red Blood Count 5.42 X10*6/uL (4.60-5.80); Red Cell Distribution Width 13.2 % (11.0-16.0); White Blood Count 6.3 X10*3/uL (4.8-10.8)
[2024-09-10 12:01] LABS: Alanine Aminotransferase 41 U/L (0-40); Albumin Level 4.1 g/dL (3.5-5.0); Alkaline Phosphatase 54 U/L (39-117); Aspartate Amino Transferase 41 U/L (5-37); Bilirubin Direct 0.2 mg/dL (0.0-0.5); Bilirubin Total 0.7 mg/dL (0.0-1.0); Cholesterol 154 mg/dL (<200); HDL Cholesterol 44 mg/dL (>40); LDL Cholesterol Calculated 89 mg/dL (<100); Total Protein 7.6 g/dL (6.5-8.0); Triglycerides 107 mg/dL (<150)
== END 2024-09-10 07:59 | disposition home or self-care (01) ==
LOC: HO.HHCL 07:58
PROVIDERS: Visit Provider Family Medicine
DX: E78.5 Hyperlipidemia, unspecified (principal)
CPT/HCPCS: 36415; 80061; 80076; 85025

== ENCOUNTER 2024-12-13 13:57 | Outpatient (REF) | payer MEDICARE, MEDICAID, SELFPAY ==
--- OUTSIDE RECORDS SUMMARY | 2024-12-13 15:36 | XMS_ITS | Clinical Summary ---
Author Organization [employer] Address [address] [facility] [address] [place] [address] Care Team Providers Care Carpenters Name Role Phone Loida Oliver MD Primary Care Provider [phone] Allergies Active Allergy Reactions Criticality Noted Date [...] Active Problems Problem Noted Date Diagnosed Date Transaminitis 09/13/2024 Overview (09/13/2024): Lab Results Component Value Date AST 41 (H) 09/10/2024 AST 23 11/19/2023 ALT 41 (H) 09/10/2024 ALT 20 11/19/2023 ALT 25 12/19/2021 ALT 19 09/14/2021 TOTALBILIRUB 0.7 09/10/2024 TOTALBILIRUB 0.5 11/19/2023 PLT 246 09/10/2024 CREATININE 0.95 11/19/2023 NA 142 11/19/2023 -discussed lifestyle modification and recheck in 3 months Hx of food anaphylaxis 09/01/2024 Overview (09/01/2024): 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 -allergy desensitization injections facilitated by Dr. Michael -prescribed refill GjzOko48/30/24 Hypogonadism in male 09/01/2024 Overview (09/01/2024): Pt getting testosterone from [facility] since May 2024. Reports testosterone was 289. -check labs Assessment & Plan (09/01/2024 12:59 PM EST): Pt getting testosterone from [facility] since May 2024. Reports testosterone was 289. [...] due after 04/28/25 -eye care facilitated by [facility] -dental home is at the [facility] -health care proxy given and filed 04/28/24 Assessment & Plan (04/28/2024 9:36 AM EDT): -next physical exam due after 04/28/25 -eye care facilitated by [facility] -dental home is at the [facility] -health care proxy given and filed 04/28/24 Assessment & Plan (05/07/2023 10:46 AM EST): -next physical exam due after 05/07/2024 -eye care facilitated by [facility] [place] [place] [facility] [place] Finding of above normal blood pressure 2 05/06/2023 Drug-induced gynecomastia 12/08/20172022 Dyslipidemia 09/02/2012 05/06/2023 Overview (09/13/2024): Lab Results Component Value Date CHOL 154 09/10/2024 CHOL 235 (H) 04/28/2024 CHOL 184 11/19/2023 TRIG 107 09/10/2024 TRIG 183 (H) 04/28/2024 TRIG 130 11/19/2023 HDL 44 09/10/2024 HDL 38 (L) 04/28/2024 HDL 46 11/19/2023 LDLCHOLCAL 89 09/10/2024 LDLCHOLCAL 161 (H) 04/28/2024 LDLCHOLCAL 112 (H) [...] by Dr. Murtaza Hu II, MD at [facility] Assessment & Plan (04/28/2024 9:36 AM EDT): -tolerant of CPAP -followed by Dr. Murtaza Hu II, MD at [facility] Seafood allergy, anaphylaxis 09/02/201212/2022 Overview (04/28/2024): -allergy desensitization injections facilitated by Dr. Michael -jelani has epinephrine on hand, due for new one -prescribed refill 04/28/24 Assessment & Plan (04/28/2024 9:27 AM EDT): -allergy desensitization injections facilitated by Dr. 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 Murtaza Hu II, MD at [facility], seen on 03/19/24 -latest appt with valve assembler 05/04/24. CT chest showed no evidence of pulmonary hypertension or embolism, a tiny 2mm left upper lobe nodule, although pt does not smoke, no further follow-up needed. Pt is benefiting from Xolair injections. Has had no serious asthma exacerbations. Follow-up in 6 months and continue Xolair infusions. Note from 10/27/24 reviewed Assessment & Plan (04/28/2024 9:28 AM EDT): [...] by Dr. Murtaza Hu II, MD at [facility], seen last 03/19/24 Resolved Problems Problem Noted Date Diagnosed Date Resolved Date Colon cancer screening 05/06/202305/07 Encounters Date Type Department Care Team Description 12/01/2024 Orders Only [facility] [address] [place] [address] Loida Oliver MD Vaccine counseling (Primary Dx) 11/30/2024 Telephone [facility] [address] [place] [address] Loida Oliver MD Lab Orders from Last 3 Months Immunizations Immunization Administration Dates Next Due Hep B, adult [...] the past 12 months, has t he [employer], gas, oil or water company threatened to [...] 1975 FIT 1975 FOBT 1975 Sigmoidoscopy 1975 Disability Screening 1975 Depression Screening 05/07/2024 05/07/2023, 05/07/20 23 Hepatitis B Vaccines (3 of 3 - 19+ 3-dose series) 06/23/2024 04/28/2024, 05/07/2023 Pneumococcal Vaccine: Pediatrics (0 to 5 Years) and At-Risk Patients (6 to 49) Years (3 of 3 - PCV20 or PCV21) 2025 09/11/2017, 08/11/2014, 03/02/2009 Zoster Vaccines (1 of 2) 2025 SDOH Screening 04/15/2025 04/15/2024 Alcohol/Substance Use Screening 04/28/2025 04/28/2024 COVID-19 Vaccine (3 - season) 2025 12/17/2020, 11/16/2020 Postponed from 02/29/2024 (Patient Refused) Tobacco Screening 04/28/2025 04/28/2024 Family Planning (PISQ) 09/01/2025 09/01/2024 Lipid Panel 09/10/2029 09/10/2024, 04/01, 11/19/2023, Additional history exists Colonoscopy 01/10/2032 01/09/2022 Colorectal [...] patient's age to complete this topic Meningococcal B Vaccine Aged Out No l onger eligible based on patient's age to complete [...] Associated Diagnosis Comments LIPID PANEL, STANDARD Routine 09/10/2024 8:00 AM EDT Dyslipidemia Hypogonadism in male HEPATITIS C AB W/REFL TO HCV RNA, QN, PCR Routine 11/19/2023 8:16 AM EDT Routine screening for STI (sexually transmitted infection) HIV 1/2 ANTIGEN/ANTIBODY, FOURTH GENERATION W/RFL Routine 11/19/2023 8:16 AM EDT Routine screening for STI (sexually transmitted infection) HM COLONOSCOPY Routine 01/09/2022 from Last 3 Months or Most Recently Relevant to Health Maintenance Results * Lipid Panel, Standard (09/10/2024 8:00 AM EDT) Triglycerides 107 <150 mg/dL [facility] Comment:Desirable Triglyceri de: less than 150 mg/dLBorderline High Triglyceride 150-199 mg/dLHigh Triglyceride: 200-499 mg/dLVery High Triglyceride: greater than or equal to 5OO mg/dL Cholesterol 154 <200 mg/dL [facility] Comment:Desirable Cholestero l: less than 200 mg/dLBorderline High Cholesterol: 200-239 mg/dLHigh Cholesterol: greater than 239 mg/dL LDL Cholesterol Calculated 89 <100 mg/dL [facility] Comment:Desirable LDL: less than 100 mg/dLNear Optimal/Above Optimal LDL: 110- 129 mg/dLBorderline High LDL: 130-159 mg/dLHigh LDL: 160-189 mg/dLVery High LDL: greater than or equal to 190 mg/dL HDL Cholesterol 44 >40 mg/dL [facility] Comment:Desirable HDL: great er than 40 mg/dL Note: This HDL assay may give artificially low results in patients with liver disease. Blood Venous blood specimen / Unknown 09/10/2024 8:00 AM EDT 09/10/2024 11:15 AM EDT Loida Oliver MD LAB BLOOD ORDERABLES Final Result Performing Organization Address [facility] Co de Phone Number [facility] [address] [place] [phone] * Hepatitis C Antibody with Reflex to HCV, RNA, Quantitative, Real-Time PCR (11/19/2023 8:16 AM EDT) Hepatitis C Antibody Nonreactive Nonreactive [facility] Comment:Antibodies to HCV no t detected; does not exclude early acuteHCV infection. Blood Venous blood specimen / Unknown 11/19/2023 8:16 AM EDT 11/19/2023 11:04 AM EDT Loida Oliver MD LAB BLOOD ORDERABLES Final Result Performing Organization Address [facility] Co de Phone Number [facility] [address] [place] [phone] * HIV-1/2 Antigen and Antibodies, Fourth Generation, with Reflexes (11/19/2023 8:16 AM EDT) Pathologist [facility] HIV AB/AG Nonreactive Nonreactive [facility] Comment:HIV-1 p24 Ag and/or HIV-1/HIV-2 Ab not detected.A test result that is nonreactive does not exclude thepossibility of exposure to or infection with HIV-1 and/orHIV-2. Nonreactive results in this assay for individualswith prior exposure to HIV-1 and/or HIV-2 may be due toantigen and antibody levels that are below the limit ofdetection of this assay.The [employer] HIV Ag/Ab Combo assay result andsupplemental assay results should be interpreted inconjunction with the patient's clinical presentation,history and other laboratory results. If the results areinconsistent with clinical evidence, additional testing issuggested to confirm the result. Blood Venous blood specimen / Unknown 11/19/2023 8:16 AM EDT 11/19/2023 11:04 AM EDT Result [facility] Loida Oliver MD LAB BLOOD ORDERABLES Final Result [facility] [address] [place] [address] [phone] * Colonoscopy (01/09/2022) Colonoscopy Hyperplastic polyp Dr. Wilson Historical Provider HEALTH MAINTENANCE Final Result from Last 3 Months or Most Recently Relevant to Health Maintenance [facility] Member Subscriber Plan / Payer ( fective 2023-Present) Name:Juancarlos Ho Member ID:[id number] Relation to Subscriber:Self Name:Juancarlos Ho Subscriber ID:[id number] Payer ID:STATE Group ID:Not on file Type:Medicare Address: [facility] [address] [id number] Advance Directives Documents on File Type Date Recorded Patient Offset Printing Pressmen Expl anation Advance Directives and Living Will 04/29/2024 2:03 PM Health Care Proxy Care Teams Carpenters Relationship Specialty Start Date End Date [place], Loida, MD [address] [place] [address] PCP - General Family Medicine 06/30/18 Lele Hu II, MD [facility] [address] [address] Pulmonary Disease 11/01/24
[2024-12-13 16:59] LABS: Alanine Aminotransferase 37 U/L (0-40); Albumin Level 4.4 g/dL (3.5-5.0); Alkaline Phosphatase 56 U/L (39-117); Aspartate Amino Transferase 31 U/L (5-37); Bilirubin Direct < 0.2 mg/dL (0.0-0.5); Bilirubin Total 0.2 mg/dL (0.0-1.0); Cholesterol 209 mg/dL (<200); HDL Cholesterol 44 mg/dL (>40); LDL Cholesterol Calculated 119 mg/dL (<100); Total Protein 7.3 g/dL (6.5-8.0); Triglycerides 232 mg/dL (<150)
[2024-12-14 19:33] LABS: Mumps Virus IgG Antibody <9.00 AU/mL; Rubella IgG Antibody 5.36 Index
== END 2024-12-13 13:58 | disposition home or self-care (01) ==
LOC: HO.HHCL 13:57
PROVIDERS: Visit Provider Family Medicine
DX: E78.5 Hyperlipidemia, unspecified (principal); Z71.85 Encounter for immunization safety counseling
CPT/HCPCS: 36415; 80061; 80076; 86735; 86762; 86765

== ENCOUNTER 2025-04-25 08:04 | Outpatient (REF) | payer MEDICARE, MEDICAID, SELFPAY ==
--- OUTSIDE RECORDS SUMMARY | 2025-04-25 08:14 | XMS_ITS | Encounter Summary ---
Author Organization [facility] Address [address] [place] [phone] Phone Care Team Providers Care Tube Room Cashier Name Role Phone Loida Oliver MD Primary Care Provi larissa Encounter Details Date Type Department Care Team (Late st Contact Info) Description 01/09/2022 Procedure Pass [facility] Endoscopy Admitting Dept Virtual Department [address] [place] [phone] Social History Tobacco Use Types Packs/Day Years Used Date Smoking Tobacco: Never Smokeless Tobacco: Never Alcohol Use Standard Drinks/Week Comments No 0 (1 standard drink = 0.6 oz pur e alcohol) Sex and Gender Information Value Date Recorded Sex Assigned at Male 08/22/2017 8:21 AM EST Legal Sex Male 9:29 PM EDT Gender Identity Male 08/22/2017 8:21 AM EST Sexual Orientation Straight 10/29/2017 9 :48 PM EDT documented as of this encounter Plan of Treatment Not on file documented as of this encounter Visit Diagnoses Not on filedocumented in this encounter Additional Health Concerns Infection Onset Date Last Indicated Resolved Time CoV-Risk 06/16/2022 06/16/2022 06/27/2022 1:22 AM EST CoV-Risk 09/28/2024 09/28/2024 10/09/2024 1:22 AM EDT CoV-Risk 03/04/2025 03/04/2025 03/15/2025 1:21 AM EDT documented as of this encounter Care Teams Tube Room Cashier Relationship Specialty Start Date End Date Loida Oliver MD [address] [place] [phone] PCP - General Family Medicine 08/22/17 documented as of this encounter Additional Source Comments The information contained in this document represents components of the legal health record. It is not the complete legal health record.[facility]
--- OUTSIDE RECORDS SUMMARY | 2025-04-25 08:14 | XMS_ITS | Encounter Summary ---
Author Organization [facility] Address [address] [place] [phone] Phone Care Team Providers Care Weight Tester Name Role Phone Benito, Loida Levy MD Primary Care Provi larissa Encounter Details Date Type Department Care Team (Late st Contact Info) Description 11/23/2019 Ancillary Orders Virtual Department [address] [place] [address] Eber Bai MD [address] [place] [address], [address] [place] [address] [email or web address] Calculus of kidney Social History Tobacco Use Types Packs/Day Years Used Date Smoking Tobacco: Never Smokeless Tobacco: Never Alcohol Use Standard Drinks/Week Comments No 0 (1 standard drink = 0.6 oz pur e alcohol) Sex and Gender Information Value Date Recorded Sex Assigned at Male 08/22/2017 8:21 AM EST Legal Sex Male 9:29 PM EDT Gender Identity Male 08/22/2017 8:21 AM EST Sexual Orientation Straight 10/29/2017 9: 48 PM EDT documented as of this encounter Plan of Treatment Not on file documented as of this encounter Results * XR ABDOMEN 1 VIEW (11/26/2019 9:11 AM EDT) Anatomical Region Laterality Modality Abdomen Radiographic Yumi ging 11/26/2019 9:39 AM EDT Impressions 11/26/2019 9:42 AM EDT Persisting 12 mm x 6 cm calculus in the lower pole of the right kidney. No other radiopaque urinary tract calculi visible. POS - [id number] Narrative 11/26/2019 9:42 AM EDT HISTORY: Right-sided pain. COMPARISON: CT abdomen 10/13/2019 VIEWS: AP supine views. FINDINGS: There is a persisting 12 mm x 6 mm calculus in the lower pole of the right kidney. A tiny calculus demonstrated in the interpolar region of the left kidney on CT 10/13/2019 is not visible. No other evidence of radiopaque urinary tract calculi in the abdomen or pelvis. Scattered air within the colon. No marked bowel distention. No definite signs of abdominal or pelvic masses. Procedure Note Nicko Loving MD - 11/26/2019 HISTORY: Right-sided pain. COMPARISON: CT abdomen 10/13/2019 VIEWS: AP supine views. FINDINGS: There is a persisting 12 mm x 6 mm calculus in the lower pole of the rightkidney. A tiny calculus demonstrated in the interpolar region of the leftkidney on CT 10/13/2019 is not visible. No other evidence of radiopaqueurinary tract calculi in the abdomen or pelvis. Scattered air within the colon. No marked bowel distention. No definite signs of abdominal or pelvic masses. IMPRESSION: Persisting 12 mm x 6 cm calculus in the lower pole of the right kidney. Noother radiopaque urinary tract calculi visible. POS - [id number] Eber Bai MD IMG XR ABDOMEN Final Result documented in this encounter Visit Diagnoses Diagnosis Calculus of kidney Calculus of kidney documented in this encounter Additional Health Concerns Infection Onset Date Last Indicated Resolved Time CoV-Risk 07/17/2020 07/17/2020 07/27/2020 1:24 AM EST CoV-Risk 06/16/2022 06/16/2022 06/27/2022 1:22 AM EST CoV-Risk 09/28/2024 09/28/2024 10/09/2024 1:22 AM EDT CoV-Risk 03/04/2025 03/04/2025 03/15/2025 1:21 AM EDT documented as of this encounter Care Teams Weight Tester Relationship Specialty Start Date End Date Benito, Loida Levy MD [address] [place] [address] PCP - General Family Medicine 08/22/17 documented as of this encounter Additional Source Comments The information contained in this document represents components of the legal health record. It is not the complete legal health record.[facility]
--- OUTSIDE RECORDS SUMMARY | 2025-04-25 08:14 | XMS_ITS | Clinical Summary ---
Author Organization [employer] Address [address] [facility] [address] [place] [address] Care Team Providers Care Leather Production Machine Operator Name Role Phone Loida Oliver MD Primary Care Provider [phone] Allergies Active Allergy Reactions Criticality Noted Date Comments Ciprofloxacin Shortness of breath High 10/13/2019 Other reaction(s): shortness of breath Shellfish Allergy Anaphylaxis High 08/22/2017 Medications Fluticasone-Salm eterol (Advair Diskus) 500-50 MCG/ACT aerosol powderIndication s:Severe persistent asthma without complication (HCC) Refills 0, Maintenance, 07/30/23 13:20:00 EST 07/30/19 [...] injectionIndicat ions:Severe persistent asthma, unspecified whether complicated (HCC) Inject under the skin every 14 (fourteen) days. Active levalbuterol (Xopenex) 45 MCG/ACT inhalerIndicatio ns:Severe persistent asthma, unspecified whether complicated (HCC) Inhale. Active atorvastatin (Lipitor) 40 MG tabletIndication s:Dyslipidemia Take 1 tablet (40 mg) by mouth Once per day. 90 tablet 3 04/29/20 24 025 Active Active Problems Problem Noted Date Diagnosed Date Hospital discharge follow-up 03/14/2025 Transaminitis 09/13/2024 Overview (09/13/2024): Lab Results Component [...] injections facilitated by Dr. Michael -prescribed refill [facility]as24/30/24 Hypogonadism in male 09/01/2024 Overview (09/01/2024): Pt getting testosterone from [facility] since May 2024. Reports testosterone was 289. -check labs Assessment & Plan (09/01/2024 12:59 PM EST): Pt getting testosterone from [facility] since May 2024. Reports testosterone was 289. [...] due after 04/28/25 -eye care facilitated by [facility] -dental home is at the [facility] -health care proxy given and filed 04/28/24 Assessment & Plan (04/28/2024 9:36 AM EDT): -next physical exam due after 04/28/25 -eye care facilitated by [facility] -dental home is at the [facility] -health care proxy given and filed 04/28/24 Assessment & Plan (05/07/2023 10:46 AM EST): -next physical exam due after 05/07/2024 -eye care facilitated by [facility] -dental home is t the [facility] Finding of above normal blood pressure 2 [...] by Dr. Murtaza Hu II, MD at [facility] Assessment & Plan (04/28/2024 9:36 AM EDT): -tolerant of CPAP -followed by Dr. Murtaza Hu II, MD at [facility] Seafood allergy, anaphylaxis 09/02/201212/2022 Overview (04/28/2024): [...] by Dr. Murtaza Hu II, MD at [facility], seen on 03/19/24 -latest appt with battery charger tester 05/04/24. CT chest showed no evidence of [...] by Dr. Murtaza Hu II, MD at [facility], seen last 03/19/24 Resolved Problems Problem Noted Date Diagnosed Date Resolved Date Colon cancer screening 05/06/202305/07 Encounters Date Type Department Care Team Description 04/06/2025 Orders Only [facility] [address] [place] [phone] Loida Oliver MD Hypogonadism in male (Primary Dx) 03/14/2025 10:15 AM EDT Office Visit [facility] [address] [place] [phone] Rosita Pierce FNP Severe persistent asthma without complication (Primary Dx); Hospital discharge follow-up 03/14/2025 Travel 03/10/2025 Telephone [facility] [address] [place] [phone] Loida Oliver MD CHARTPREP 03/09/2025 Telephone [facility] [address] [place] [phone] Loida Oliver MD chart prep from Last 3 Months Immunizations Immunization Administration Dates Next Due Hep B, adult 04/28/2024,05/07/2023 INFLUENZA VACCINE QUADRIVALE NT RECOMBINANT PRESERVATIVE FREE RIV4 03/15/2021 Influenza injectable quadrivalent preservative f ree 03/06/2018,02/28/2015 Influenza, IIV3, injectable 04/06/2023, 0 Influenza, Split (incl. purified surface antigen ) 02/11/2014 Influenza, intradermal, quad rivalent, preservative free 04/08/2017 Influenza, seasonal, injectable, preservative fr ee 04/28/2024 MMR 12/21/2024 Moderna Covid-19 Vaccine 12+ 12/17/2020,11/17/19 21 Pneumococcal Conjugate PCV 13 09/11/2017 Pneumococcal Polysaccharide PPSV23 08/11/2014, Tdap 05/07/2023,09/25/2011 Social History Tobacco Use Types Packs/Day Years Used Date Smoking Tobacco: Never Passive Smoke Exposure: Never Smokeless Tobacco: Never Tobacco Cessation:Counseling Given: [...] Sign Reading Time Taken Comments Blood Pressure 126/82 03/14/2025 9:54 AM EDT Pulse 63 03/14/2025 9:54 AM EDT Temperature 36.8 C (98.2 F) 03/14/2025 9:54 AM EDT Respiratory Rate 16 03/14/2025 9:54 AM EDT Oxygen Saturation 93% 03/14/2025 9:54 AM EDT Inhaled Oxygen Concentration - - Weight 99.5 kg (219 lb 4 oz) 03/14/2025 9:54 AM EDT Height 177.8 cm (5' 10 ) 03/14/2025 9:54 AM EDT Body Mass Index 31.46 03/14/2025 9:54 AM EDT Plan of Treatment Upcoming Encounters Date Type Department Care Team (Late st Contact Info) Description 05/20/2025 9:00 AM EST Office Visit [facility] [address] [place] [phone] Loida Oliver MD [address] [place] [address] Health Maintenance Due Date Last Done Comments CT Colonography 1975 FIT DNA/Cologuard 1975 FIT 1975 FOBT 1975 Sigmoidoscopy 1975 Disability Screening 1975 Depression Screening 05/07/2024 05/07/2023, 05/07/20 23 Hepatitis B Vaccines (3 of 3 - 19+ 3-dose series) 06/23/2024 04/28/2024, 05/07/2023 Pneumococcal Vaccine: 50+ Years (3 of 3 - PCV20 or PCV21) 2025 09/11/2017, 08/11/2014, 03/02/2009 Zoster Vaccines (1 of 2) 2025 COVID-19 Vaccine (3 - season) 2025 12/17/2020, 11/16/2020 Influenza Vaccine (#1) 2025 , 04/06/2023, 04/02/2023, Additional history exists SDOH Screening 04/15/2025 04/15/2024 Alcohol/Substance Use Screening 04/28/2025 04/28/2024 Family Planning (PISQ) 09/01/2025 09/01/2024 Tobacco Screening 03/14/2026 03/14/2025 Lipid Panel 12/13/2029 12/13/2024, 0309/2024, 04/28/2024, Additional history exists Colonoscopy 01/10/2032 01/09/2022 Colorectal Cancer Screening 01/10/2032 DTaP/Tdap/Td Vaccines (3 - Td or Tdap) 05/07/2033 05/07/2023, 09/25/2011 RSV Patients and Patients Aged 60 years or older (1 - 1-dose 75+ series) 2050 HIV Screening Completed 11/19/2023 Hepatitis C Screening Completed 11/19/2023 HIB Vaccines Aged Out No longer eligi [...] Associated Diagnosis Comments LIPID PANEL, STANDARD Routine 12/13/2024 1:59 PM EDT Dyslipidemia HEPATITIS C AB W/REFL TO HCV RNA, QN, PCR Routine 11/19/2023 8:16 AM EDT Routine screening for STI (sexually transmitted infection) HIV 1/2 ANTIGEN/ANTIBODY, FOURTH GENERATION W/RFL Routine 11/19/2023 8:16 AM EDT Routine screening for STI (sexually transmitted infection) HM COLONOSCOPY Routine 01/09/2022 from Last 3 Months or Most Recently Relevant to Health Maintenance Results * (ABNORMAL) Lipid Panel, Standard (12/13/2024 1:59 PM EDT) Triglycerides 232(H) <150 mg/dL [facility] Comment:Desirable Triglyceri de: less than 150 mg/dLBorderline High Triglyceride 150-199 mg/dLHigh Triglyceride: 200-499 mg/dLVery High Triglyceride: greater than or equal to 5OO mg/dL Cholesterol 209(H) <200 mg/dL [facility] Comment:Desirable Cholestero l: less than 200 mg/dLBorderline High Cholesterol: 200-239 mg/dLHigh Cholesterol: greater than 239 mg/dL LDL Cholesterol Calculated 119(H) <100 mg/dL [facility] Comment:Desirable LDL: less than 100 mg/dLNear Optimal/Above Optimal LDL: 110- 129 mg/dLBorderline High LDL: 130-159 mg/dLHigh LDL: 160-189 mg/dLVery High LDL: greater than or equal to 190 mg/dL HDL Cholesterol 44 >40 mg/dL [facility] Comment:Desirable HDL: great er than 40 mg/dL Note: This HDL assay may give artificially low results in patients with liver disease. Blood Venous blood specimen / Unknown 12/13/2024 1:59 PM EDT 12/13/2024 4:02 PM EDT Loida Oliver MD LAB BLOOD ORDERABLES Final Result Performing Organization Address [facility]/ZIP Co de Phone Number [facility] [address] [place] [phone] * Hepatitis C Antibody with Reflex to HCV, RNA, Quantitative, Real-Time PCR (11/19/2023 8:16 AM EDT) Hepatitis C Antibody Nonreactive Nonreactive [facility] Comment:Antibodies to HCV no t detected; does not exclude early acuteHCV infection. Blood Venous blood specimen / Unknown 11/19/2023 8:16 AM EDT 11/19/2023 11:04 AM EDT Loida Oliver MD LAB BLOOD ORDERABLES Final Result Performing Organization Address [facility]/ZIP Co de Phone Number [facility] [address] [place] [phone] * HIV-1/2 Antigen and Antibodies, Fourth Generation, with Reflexes (11/19/2023 8:16 AM EDT) HIV AB/AG Nonreactive Nonreactive [facility] Comment:HIV-1 p24 Ag and/or HIV-1/HIV-2 Ab not detected.A test result that is nonreactive does not exclude thepossibility of exposure to or infection with HIV-1 and/orHIV-2. Nonreactive results in this assay for individualswith prior exposure to HIV-1 and/or HIV-2 may be due toantigen and antibody levels that are below the limit ofdetection of this assay.The Activation [employer] HIV Ag/Ab Combo assay result andsupplemental assay results should be interpreted inconjunction with the patient's clinical presentation,history and other laboratory results. If the results areinconsistent with clinical evidence, additional testing issuggested to confirm the result. Blood Venous blood specimen / Unknown 11/19/2023 8:16 AM EDT 11/19/2023 11:04 AM EDT Loida Oliver MD LAB BLOOD ORDERABLES Final Result [facility] [address] [place] [phone] * Colonoscopy (01/09/2022) Colonoscopy Hyperplastic polyp Dr. Wilson Madina Provider HEALTH MAINTENANCE Final Result from Last 3 Months or Most Recently Relevant to Health Maintenance Insurance [facility] STANDARD [place] [id number] Advance Directives Documents on File Type Date Recorded Patient Automotive Professional Expl anation Advance Directives and Living Will 04/29/2024 2:03 PM Health Care Proxy Care Teams Leather Production Machine Operator Relationship Specialty Start Date End Date Saint Landry, MD Loida [address] [place] [phone] PCP - General Family Medicine 06/30/18 Lele Hu II, MD [facility] [address] [facility] [address] [place] [phone] Pulmonary Disease 11/01/24
--- OUTSIDE RECORDS SUMMARY | 2025-04-25 08:15 | XMS_ITS | Encounter Summary ---
Author Organization [facility] Address [address] [place] [phone] Phone Care Team Providers Care Chief Legal Officer Name Role Phone Benito, Loida Levy MD Primary Care Provi larissa Encounter Details Date Type Department Care Team (Late st Contact Info) Description 12/27/2019 Ancillary Orders Virtual Department [address] [place] [address] Eber Bai MD [address] [place] [address], [address] [place] [address] [email or web address] Calculus of kidney Social History Tobacco Use [...] encounter Results * XR ABDOMEN 1 VIEW (12/29/2019 10:05 AM EDT) Anatomical Region Laterality Modality Abdomen Computed Radiogr aphy 12/29/2019 10:5 6 AM EDT Impressions 12/29/2019 10:58 AM EDT No findings to suggest radiopaque renal stones on today's study POS - [id number] Narrative 12/29/2019 10:58 AM EDT EXAM: XR ABDOMEN 1 VIEW COMPARISON: Radiographs of the abdomen on November 26, 2019 FINDINGS: Previously seen radiopaque calcification of the right kidney is not seen on the current study. No new calcifications identified projecting over the renal shadows. Visualized soft tissues outlines are unremarkable. Nonobstructive bowel gas pattern. Osseous structures are grossly intact. Procedure Note Mary Ann Multani MD - 12/29/2019 EXAM: XR ABDOMEN 1 VIEW COMPARISON: Radiographs of the abdomen on November 26, 2019 FINDINGS: Previously seen radiopaque calcification of the right kidney is not seenon the current study. No new calcifications identified projecting over therenal shadows. Visualized soft tissues outlines are unremarkable.Nonobstructive bowel gas pattern. Osseous structures are grossly intact. IMPRESSION: No findings to suggest radiopaque renal stones on today's study POS - [id number] Eber Bai MD IMG XR ABDOMEN Final [...] documented as of this encounter Care Teams Chief Legal Officer Relationship Specialty Start Date End Date Loida Oliver MD [address] [place] [phone] PCP - General Family Medicine 08/22/17 documented as of this encounter Additional Source Comments The information contained in this document represents components of the legal health record. It is not the complete legal health record.[facility]
--- OUTSIDE RECORDS SUMMARY | 2025-04-25 08:15 | XMS_ITS | Clinical Summary ---
Author Organization [facility] Address [address] [place] [phone] Phone Care Team Providers Care Hardboard Grinder Name Role Phone Loida Oliver MD Primary Care Provi larissa Allergies Active Allergy Reactions Criticality Noted Date Comments Ciprofloxacin Shortness Of Breath High 11/26/2019 Other Sneezing Low 10/29/2017 Seasonal allergies Shellfish Containing Products Anaphylaxis High 08/22/2017 Medications fluticasone-alfredo meterol (ADVAIR DISKUS) 500-50 mcg/dose DISKUS 1 puff 2 (two) times a day. Active Medication-Free Text 300 mg. Xolair injections every other week Active levalbuterol (XOPENEX HFA) 45 mcg/actuation inhaler 2 puffs every 6 (six) hours as needed. Active albuterol 2.5 mg /3 mL (0.083 %) nebulizer solution Take 3 mL (2.5 mg total) by nebulization every 4 (four) hours as needed for wheezing. 40 vial 2 8 Active cetirizine HCl (ZYRTEC ORAL) Take 15 mg by mouth daily. Active fluticasone furoate (VERAMYST) 27.5 mcg/actuation nasal spray 2 sprays by Nasal route daily for 14 days. 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 Encounters Date Type Department Care Team Description 03/04/2025 11:11 PM EDT - 03/05/2025 1:27 AM EDT Emergency [facility] [address] [place] [address] Eddie Woodard MD Discharge Disposition: Home or Self Care from Last 3 Months Family History Medical History Relation Comments Diabetes Mother Relation Status Comments Father Alive Mother Alive Social History Tobacco Use Types Packs/Day Years Used Date Smoking Tobacco: Never Smokeless Tobacco: Never Alcohol Use Standard Drinks/Week Comments No 0 (1 standard drink = 0.6 oz pur e alcohol) Education Answer Date Recorded Are you interested in more education? Not on federcio e 10/25/2022 Are you concerned about learning? Not on file 10/25/2022 No 10/25/2022 No 10/25/2022 Food Answer Date Recorded Within the past 6 months we worried whether our food would run out before we got money to buy more. Never True 03/05/2025 Within the past 6 months the food we bought just didn't last and we didn't have enough money to get more. Never True Residential Stability Answer Date Recor ded What is your housing situation today? I have ashley sing 03/05/2025 How many times have you move d in the past 12 months? Zero (I did not move) 03/05/2025 Paying for Meds Answer Date Recorded Do you have trouble paying for medicines? No 03/05/2025 Paying Utility Bills Answer Date Record ed Do you have trouble paying your heating or elect ricity bill? No 03/05/2025 Transportation Answer Date Recorded Has the lack of transportati on kept you from medical appointments or from getting medications? No 03/05/2025 Digital Access Answer Date Recorded No 03/05/2025 Yes 03/05/2025 Do you have reliable internet access at home? Ye s 03/05/2025 Do you have a device (e.g., phone, tablet, computer) with a working camera? Yes 03/05/2025 Intimate Partner Violence Answer Date R ecorded Are you denied basic needs s uch as food, clothing, or medical care? No 03/04/2025 In the past 12 months have y ou been in a relationship with a person who hurts, threatens, or tries to control you? No 03/04/2025 Are you denied basic needs s uch as food, clothing, or medical care? No 03/04/2025 In the past 12 months have y ou been in a relationship with a person who hurts, threatens, or tries to control you? No 03/04/2025 Sex and Gender Information Value Date Recorded Sex Assigned at Male 08/22/2017 8:21 AM EST Legal Sex Male 9:29 PM EDT Gender Identity Male 08/22/2017 8:21 AM EST Sexual Orientation Straight 10/29/2017 9: 48 PM EDT Last Filed Vital Signs Vital Sign Reading Time Taken Comments Blood Pressure 136/87 03/05/2025 1:26 AM EDT Pulse 62 03/05/2025 1:26 AM EDT Temperature 36.4 C (97.5 F) 03/05/2025 1:26 AM EDT Respiratory Rate 16 03/05/2025 1:26 AM EDT Oxygen Saturation 100% 03/05/2025 1:26 AM EDT Inhaled Oxygen Concentration - - Weight 117.9 kg (260 lb) 03/04/2025 8:43 PM EDT Height 177.8 cm (5' 10 ) 03/04/2025 8:43 PM EDT Body Mass Index 37.31 03/04/2025 8:43 PM EDT Plan of Treatment Health Maintenance Due Date Last Done Comments DEPRESSION SCREENING 1987 HEPATITIS C SCREENING 1993 COLOGUARD 02/16/2020 FIT TEST 02/16/2020 FOBT 02/16/2020 SIGMOIDOSCOPY 02/16/2020 VIRTUAL COLONOSCOPY 02/16/2020 INFLUENZA VACCINE (#1) 2025 , 03/06/2018, 04/08/2017, Additional history exists PNEUMOCOCCAL VACCINES (50+ years) (3 of 3 - PCV20 or PCV21) 2025 09/11/2017, 08/11/2014, 03/02/2009 ZOSTER VACCINES (1 of 2) 2025 COVID-19 VACCINE (3 - season) 2025 12/17/2020, 11/16/2020 SCREENING FOR DIABETES 06/16/2025 06/16/2022 LIPID PANEL 12/13/2029 12/13/2024, 03/09/2024, 10/26/2018, Additional history exists COLONOSCOPY 01/10/2032 01/09/2022 COLORECTAL CANCER SCREENING 01/10/2032 Adult Td,Tdap Booster 05/07/2033 05/07/2023, 012 RSV VACCINE (1 - 1-dose 75+ series) 2050 HIV ONE-TIME SCREENING (18-65 YEARS) Completed 09/12/2017 SMOKING STATUS SCREENING (Once After 26 Yrs) Completed 01/09/2022 HEPATITIS A VACCINES Aged Out No long er eligible based on patient's age to complete this topic HIB VACCINES Aged Out No longer eligi ble based on patient's age to complete this topic MENINGOCOCCAL VACCINES (ACWY) Aged Out No longer eligible based on patient's age to complete this topic MENINGOCOCCAL VACCINES (B) Aged Out N o longer eligible based on patient's age to complete this topic Medical Devices Not on file Procedures Procedure Name Priority Date/Time Associated Diagnosis Comments D-DIMER STAT 03/05/2025 12:13 AM EDT TROPONIN STAT 03/04/2025 10:08 PM EDT TROPONIN STAT 03/04/2025 9:07 PM EDT NT-PROBNP STAT 03/04/2025 9:07 PM EDT BASIC METABOLIC PANEL STAT 03/04/2025 9:07 PM EDT CBC AND DIFFERENTIAL STAT 03/04/2025 9:07 PM EDT XR CHEST PA AND LATERAL 2 VIEWS STAT 03/04/2025 9:02 PM EDT COVID PANDEMIC RESPIRATORY VIRAL ORDER (PRO) STAT 03/04/2025 8:49 PM EDT ECG 12-LEAD STAT 03/04/2025 8:40 PM EDT ENDOSCOPY, COLON 01/09/2022 8:28 AM EDT LIPID PANEL Routine 10/26/2018 9:04 AM EDT Hyperlipidemia, unspecified hyperlipidemia type from Last 3 Months or Most Recently Relevant to Health Maintenance Results * D-dimer (03/05/2025 12:13 AM EDT) D-DIMER <215 <500 ng/mL FEU [facility] Comment:In patients with low to moderate pre-test probability scores for VTE (PE or DVT), a D-Dimer cut-off less than 500 ng/mL (FEU) has a negative predictive value (NPV) of 97 to 100%. Blood 03/05/2025 12:1 3 AM EDT 03/05/2025 12:29 AM EDT us Eddie Woodard MD LAB BLOOD ORDERABLES Fin al Result Performing Organization Address [facility]/ZIP Co de Phone Number [address] [address] * Troponin (03/04/2025 10:08 PM EDT) Only the most recent of2 resultswithin the time period is included. Troponin-T, HS Gen5 <6 0 - 14 ng/L [facility] Blood 03/04/2025 10:0 8 PM EDT 03/04/2025 10:30 PM EDT us Emerson Linn MD LAB BLOOD ORDERABLES Final Result Performing Organization Address [facility]/ZIP Co de Phone Number [address] [address] * (ABNORMAL) CBC and differential (03/04/2025 9:07 PM EDT) WBC 5.42 4.00 - 11.00 K/uL [facility] RBC 5.47 4.50 - 5.90 M/uL [facility] HGB 16.1 13.5 - 17.5 g/dL [facility] HCT 47.1 41.0 - 53.0 % [facility] PLT 260 150 - 450 K/uL [facility] MCV 86.1 80.0 - 100.0 fL [facility] MCH 29.4 27.0 - 31.0 pg [facility] MCHC 34.2 32.0 - 36.0 g/dL [facility] RDW 12.0 11.5 - 14.5 % [facility] MPV 9.5 8.4 - 12.0 fL [facility] NRBC 0.00 0.00 /100 WBCs [facility] ABSOLUTE NRBC 0.00 0.00 K/uL [facility] DIFF METHOD Auto [facility] NEUTS 43.7(L) 48.0 - 76.0 % [facility] LYMPHS 45.9(H) 18.0 - 41.0 % [facility] MONOS 6.1 4.0 - 11.0 % [facility] EOS 3.7 0.0 - 5.0 % [facility] BASOS 0.6 0.0 - 1.5 % [facility] Granulocytes, immature (%) 0.0 0.0 - 0.9 % [facility] ABSOLUTE NEUTS 2.37 1.92 - 7.60 K/uL [facility] ABSOLUTE LYMPHS 2.49 0.72 - 4.10 K/uL [facility] ABSOLUTE MONOS 0.33 0.16 - 1.10 K/uL [facility] ABSOLUTE EOS 0.20 0.00 - 0.50 K/uL [facility] ABSOLUTE BASOS 0.03 0.00 - 0.15 K/uL [facility] Granulocytes, immature 0.00 0.00 - 0.09 K/uL [facility] Blood 03/04/2025 9:07 PM EDT 03/04/2025 9:12 PM EDT us Emerson Linn MD LAB BLOOD ORDERABLES Final Result [facility] [address] [place] [address] * NT-proBNP (03/04/2025 9:07 PM EDT) NT-PROBNP <36 0 - 125 pg/mL [facility] Blood 03/04/2025 9:07 PM EDT 03/04/2025 9:12 PM EDT Emerson Linn MD LAB BLOOD ORDERABLES Final Result Performing Organization Address [facility] Co de Phone Number [address] [phone] * (ABNORMAL) Basic metabolic panel (03/04/2025 9:07 PM EDT) SODIUM 140 133 - 146 mmol/L [facility] CHLORIDE 103 96 - 108 mmol/L [facility] POTASSIUM 4.2 3.3 - 5.1 mmol/L [facility] Comment:Specimen slightly he molyzed, result may be falsely elevated. CO2 26 21 - 35 mmol/L [facility] BUN 19 6 - 19 mg/dL [facility] CREATININE 0.90 0.5 - 1.5 mg/dL [facility] GLUCOSE 133(H) 70 - 99 mg/dL [facility] CALCIUM 9.6 8.4 - 10.3 mg/dL [facility] EGFR 104 >59 mL/min/1.7 3m2 [facility] Comment:Estimated glomerular filtration rate calculated using the CKD-EPI refit equation. ANION GAP 15 10 - 20 mmol/L [facility] Blood 03/04/2025 9:07 PM EDT 03/04/2025 9:12 PM EDT Emerson Linn MD LAB BLOOD ORDERABLES Final Result Performing Organization Address City/[facility] Co de Phone Number [address] [phone] * XR CHEST PA AND LATERAL 2 VIEWS (03/04/2025 9:02 PM EDT) Anatomical Region Laterality Modality Chest Computed Radiogr aphy 03/04/2025 9:29 PM EDT Impressions 03/04/2025 10:01 PM EDT No acute abnormality. ATTESTATION: I, Chapis Smith as teaching physician, have reviewed the images for this case and if necessary edited the report originally created by Roldan Schneider. Narrative 03/04/2025 10:01 PM EDT XR CHEST PA AND LATERAL 2 VIEWS Referring clinician's provided indication for this examination in [facility]: Dyspnea (Shortness of Breath) COMPARISON: XR CHEST 1 VIEW FINDINGS: Devices/Tubes/Lines: None. Lungs: No focal consolidation or pulmonary edema. Pleura: No pleural effusion or pneumothorax. Heart/Mediastinum: Normal heart and mediastinum. Bones/Soft Tissues: No significant abnormality. Procedure Note Chapis Cochran MD - 03/04/2025 XR CHEST PA AND LATERAL 2 VIEWS Referring clinician's provided indication for this examination in [facility]:Dyspnea (Shortness of Breath) COMPARISON: XR CHEST 1 VIEW FINDINGS: Devices/Tubes/Lines: None. Lungs: No focal consolidation or pulmonary edema. Pleura: No pleural effusion or pneumothorax. Heart/Mediastinum: Normal heart and mediastinum. Bones/Soft Tissues: No significant abnormality. IMPRESSION: No acute abnormality. ATTESTATION: I, Chapis Smith as teaching physician, have reviewed theimages for this case and if necessary edited the report originally createdby Roldan Schneider. Emerson Linn MD IMG XR CHEST Final Resul t * COVID Pandemic Respiratory Viral Order (PRO) (03/04/2025 8:49 PM EDT) Test Ordered Rapid COVID has been ordered [facility] Specimen Source/Description NASAL [facility] SARS-CoV 2 (COVID-19) PCR Not Detected Not Detected [facility] Comment: SARS-CoV-2 not detected Negative results do not preclude SARS-CoV-2 infection and should not be used as the sole basis for patient management decisions. Negative results must be combined with clinical observations, patient history, and epidemiological information. Other (Nasopharyngeal swab) 03/04/2025 8:49 PM EDT 03/04/2025 9:08 PM EDT Emerson Linn MD BODY FLUIDS AND STOOLS JAVAD WYMAN Final Result [address] [address] * ECG 12-LEAD (03/04/2025 8:40 PM EDT) Ventricular Rate EKG/MIN 79 BPM [facility] Atrial Rate 79 BPM [facility] PA Interval 138 ms [facility] QRS Duration 98 ms [facility] QT Interval 370 ms [facility] QTC Interval 424 ms [facility] P [place] 82 degrees [facility] R Wave [place] 74 degrees [facility] T Wave [place] 58 degrees [facility] 03/04/2025 8:40 PM EDT 03/05/2025 10:30 AM EDT Narrative [facility] - 03/05/2025 10:30 AM EDT Normal sinus rhythm Moderate voltage criteria for LVH, may be normal variant Borderline ECG When compared with ECG of 28-Sep-2024 02:45, No significant change was found Confirmed by Han Bueno ([id number]) on 03/05/2025 10:30:32 AM us Emerson Linn MD ECG ORDERABLES Final Resul t Performing Organization Address City/[facility] Co de Phone Number [email or web address] * ENDOSCOPY, COLON (01/09/2022 8:28 AM EDT) Narrative Transcriptions Sarah Moss MD - 01/09/2022 8:28 AM EDT Patient Name: Juancarlos Bingham MD:: SARAH MOSS MD Procedure Date: 01/09/2022 8:28 AM Date of : 1975 Age: 46 Admit Type: Outpatient Gender: Male Room: [facility] 04 Referring MD: Loida Oliver MD Exam Type: Colonoscopy Indications: Screening for colorectal malignant neoplasm, Thisis the patient's first colonoscopy Medications: Propofol per Anesthesia Procedure: Informed consent was obtained from the patientafter discussion of the indications, limitations, alternatives, benefits, and risks of the procedure. Risks specifically discussed include but are not limited to medication reactions, missed lesions, bleeding, perforation, or the need for emergent surgery. Throughout the procedure, the patient's blood pressure, pulse, end-tidal CO2, and oxygensaturations were monitored continuously. The Colonoscope was introduced through the anus and advanced to the terminal ileum, with identificationof the appendiceal orifice and IC valve. The terminal ileum, ileocecal valve, appendiceal orifice, and rectum, the terminal ileum, the appendiceal orifice and the rectum were photographed. The colonoscopywas performed without difficulty. The patient tolerated the procedure well. The quality of the bowel preparation was good. The bowel preparation usedwas PEG in Gatoraide via split dose instruction. Complications: No immediate complications. Estimated blood loss:None. Findings: The perianal and digital rectal examinations were normal. Pertinent negatives include normal prostate (size, shape, and consistency). The retroflexed view of the distal rectum and anal verge was normal and showed no anal or rectal abnormalities. A small polyp was found in the distal sigmoidcolon. The polyp was sessile. The polyp was removed with a cold snare. Resection and retrieval werecomplete. The exam was otherwise without abnormality. The terminal ileum appeared normal. Retroflexion in the right colon was performed. Impression: - The distal rectum and anal verge are normal on retroflexion view. - One small polyp in the distal sigmoid colon,removed with a cold snare. Resected and retrieved. - The examination was otherwise normal. - The examined portion of the ileum was normal. Recommendation: - If the pathology report reveals adenomatoustissue, then repeat the colonoscopy for surveillance in 5 years. - If the pathology report reveals no adenomatous tissue, then repeat the colonoscopy for screening purposes in 10 years. SARAH MOSS MD 01/09/2022 8:53:52 AM This report has been signed electronically. Number of Addenda: 0 Note Initiated On: 01/09/2022 8:28 AM Procedure Code(s): --- Professional --- 59951, Colonoscopy, flexible; with removal of tumor(s), polyp(s), or other lesion(s) by snare technique --- Technical --- 57679, Colonoscopy, flexible; with removal of tumor(s), polyp(s), or other lesion(s) by snare technique Diagnosis Code(s): --- Professional --- Z12.11, Encounter for screening for malignantneoplasm of colon K63.5, Polyp of colon --- Technical --- Z12.11, Encounter for screening for malignantneoplasm of colon K63.5, Polyp of colon CPT copyright 2020 [employer]. All rights reserved. The codes documented in this report are preliminary and upon confectionery laboratory manager reviewmay be revised to meet current compliance requirements. Procedure Date: 01/09/2022 8:28:[address] [place] [id number] Loida Oliver MD GI PROCEDURE ORDERA BLES Final Result * (ABNORMAL) Lipid panel (10/26/2018 9:04 AM EDT) HDL 57 mg/dL [facility] Comment: Interpretation <40 mg/dL: Low HDL cholesterol (major risk factor for CHD) Greater than or equal to 60 mg/dL: High HDL cholesterol ( negative risk factor for CHD) HDL - cholesterol is affected by a number of factors, e.g. smoking, excerise, hormones, sex and age. CHOLESTEROL 204 0 - 240 mg/dL [facility] TRIGLYCERIDES 165(H) 30 - 160 mg/dL [facility] LDL 114 50 - 129 mg/dL [facility] Comment: LDL levels in terms of risk for coronary heart disease: <100 mg/dL: Optimal 100-129 mg/dL: Near or above optimal 130-159 mg/dL: Borderline high 160-189 mg/dL: High >190 mg/dL: Very High CARDIAC RISK RATIO 3.6 3.4 - 5.0 C [facility] Blood 10/26/2018 9:04 AM EDT 10/26/2018 9:06 AM EDT us Loida Oliver MD LAB BLOOD ORDERABLE S Final Result [facility] [address] [place] [address] from Last 3 Months or Most Recently Relevant to Health Maintenance Insurance MEDICARE PART A & B [facility] MEDICARE PART A & [place] [id number] MEDICARE PART A & [place] [id number] MEDICARE PART [place]ARE [place] [facility] [facility] Care Teams Hardboard Grinder Relationship Specialty Start Date End Date Clinton, Loida Levy MD [address] [place] [phone] PCP - General Family Medicine 08/22/17 Additional Source Comments The information contained in this document represents components of the legal health record. It is not the complete legal health record.[facility]
--- OUTSIDE RECORDS SUMMARY | 2025-04-25 08:15 | XMS_ITS | Encounter Summary ---
Author Organization [facility] Address [address] [place] [phone] Phone Care Team Providers Care Paper Baler Name Role Phone Loida Oliver MD Primary Care Provi larissa Encounter Details Date Type Department Care Team (Late st Contact Info) Description 12/01/2019 Procedure Pass OR Admitting Dept - Virtual Department [address] [place] [address] Social History Tobacco Use Types Packs/Day Years [...] documented as of this encounter Care Teams Paper Baler Relationship Specialty Start Date End Date Loida Oliver MD [address] [place] [phone] PCP - General Family Medicine 08/22/17 documented as of this encounter Additional Source Comments The information contained in this document represents components of the legal health record. It is not the complete legal health record.[facility]
--- OUTSIDE RECORDS SUMMARY | 2025-04-25 08:15 | XMS_ITS | Encounter Summary ---
Author Organization [facility] Address [address] [place] [phone] Phone Care Team Providers Care Cable Braider Name Role Phone Loida Oliver MD Primary Care Provi larissa Encounter Details Date Type Department Care Team (Late st Contact Info) Description 09/12/2017 Transcribe Orders [facility] Laboratory [address] [place], [place] [phone] Loida Oliver MD [address] [place], [place] [phone] Hyperlipidemia, unspecified hyperlipidemia type (Primary Dx); Obstructive sleep apnea syndrome Social History Tobacco Use Types Packs/Day Years [...] documented as of this encounter Results * PSA (screening) (09/12/2017 8:21 AM EDT) PSA 0.65 0 - 4.00 ng/mL [facility] Blood 09/12/2017 8:21 AM EDT 09/12/2017 8:25 AM EDT us Loida Mildred Mchenry MD LAB BLOOD ORDERABLE S Final Result Performing Organization Address City/[facility]/ZIP Co de Phone Number [address] [address] * HIV-1/2 antigen/antibody (09/12/2017 8:21 AM EDT) HIV Antibod(ies) NON-REACTI VE NON-REACTI VE [facility] HIV-1 ANTIGEN NON-REACTI VE NON-REACTI VE [facility] Blood 09/12/2017 8:2 1 AM EDT 09/12/2017 8:26 AM EDT us Loida Oliver MD LAB BLOOD ORDERABLE S Final Result Performing Organization Address [facility] Co de Phone Number [address] [phone] * Comprehensive metabolic panel (09/12/2017 8:21 AM EDT) SODIUM 142 133 - 146 mmol/L [facility] POTASSIUM 4.1 3.3 - 5.1 mmol/L [facility] CHLORIDE 103 96 - 108 mmol/L [facility] CO2 26 21 - 35 mmol/L [facility] BUN 15 6 - 19 mg/dL [facility] CREATININE 1.10 0.5 - 1.5 mg/dL [facility] GLUCOSE 83 70 - 99 mg/dL [facility] ALBUMIN 4.3 3.9 - 4.8 g/dL [facility] TOTAL PROTEIN 7.8 6.5 - 8.0 g/dL [facility] CALCIUM 9.2 8.4 - 10.3 mg/dL [facility] ALKALINE PHOSPHATASE 62 39 - 117 U/L [facility] TOTAL BILIRUBIN 0.4 0.0 - 1.2 mg/dL [facility] AST 27 0 - 37 U/L [facility] ALT 34 0 - 40 U/L [facility] GLOBULIN 3.5 1 - 4.8 g/dL [facility] EGFR 82 >59 mL/min/1.7 3m2 [facility] Comment:If patient is black, multiply result by 1.159. The eGFR calculation has changed from the MDRD equation to the CKD-EPI equation as of September 02, 2017. ANION GAP 17 10 - 20 mmol/L [facility] Blood 09/12/2017 8:21 AM EDT 09/12/2017 8:26 AM EDT us Loida Oliver MD LAB BLOOD ORDERABLE S Final Result Performing Organization Address [facility] Co de Phone Number [address] [address] * (ABNORMAL) Lipid panel (09/12/2017 8:21 AM EDT) HDL 38 mg/dL [facility] Comment: Interpretation: Risk Level Males Decreased >45 mg/dL Average 40-45 mg/dL Increased <40 mg/dL CHOLESTEROL 245(H) 0 - 240 mg/dL [facility] TRIGLYCERIDES 526(H) 30 - 160 mg/dL [facility] LDL NOT CALCULATED 50 - 129 mg/dL [facility] Comment: Unable to calculate due to elevated TRIG of greater than 400. A measured LDL will be performed. CARDIAC RISK RATIO 6.4(H) 3.4 - 5.0 [facility] Blood 09/12/2017 8:21 AM EDT 09/12/2017 8:26 AM EDT us Loida Oliver MD LAB BLOOD ORDERABLE S Final Result Performing Organization Address [facility] Co de Phone Number [address] [phone] * Estradiol (09/12/2017 8:21 AM EDT) ESTRADIOL 23 pg/mL [facility] Comment:MALE <5-61 pG/m Blood 09/12/2017 8:21 AM EDT 09/12/2017 8:26 AM EDT us Loida Oliver MD LAB BLOOD ORDERABLE S Final Result [facility] [address] [place] [address] documented in this encounter Visit Diagnoses Diagnosis Hyperlipidemia, unspecified hyperlipidemia type- Primary Obstructive sleep apnea syndrome Obstructive sleep apnea (adult) (pediatric) documented in this encounter Additional Health Concerns Infection Onset Date Last Indicated Resolved Time CoV-Risk 07/17/2020 07/17/2020 07/27/2020 1:24 AM EST CoV-Risk 06/16/2022 06/16/2022 06/27/2022 1:22 AM EST CoV-Risk 09/28/2024 09/28/2024 10/09/2024 1:22 AM EDT CoV-Risk 03/04/2025 03/04/2025 03/15/2025 1:21 AM EDT documented as of this encounter Care Teams Cable Braider Relationship Specialty Start Date End Date Benito, Loida Levy MD [address] [place] [phone] PCP - General Family Medicine 08/22/17 documented as of this encounter Additional Source Comments The information contained in this document represents components of the legal health record. It is not the complete legal health record.[facility]
--- OUTSIDE RECORDS SUMMARY | 2025-04-25 08:15 | XMS_ITS | Encounter Summary ---
Author Organization [facility] [employer] Address [address] [facility] 7t [place] [address] Care Team Providers Care Workforce Development Program Director Name Role Phone Loida Oliver MD Primary Care Provider +1- [phone] Encounter Details Date Type Department Care Team (Late st Contact Info) Description 08/06/2022 Abstract [facility] [address] [place] [address] [phone] Loida Oliver MD [address] [place] [address] [phone] Social History Tobacco Use Types Packs/Day Years Used Date Smoking Tobacco: Never Assessed Sex and Gender Information Value Date Recorded Sex Assigned at Male 04/29/2022 10:14 AM EDT Legal Sex Male 10:14 AM EDT Gender Identity Male 04/29/2022 10:14 AM EDT Sexual Orientation Choose not to disclose 2021 10:14 AM EDT documented as of this encounter Plan of Treatment Upcoming Encounters Date Type Department Care Team (Late st Contact Info) Description 05/20/2025 9:00 AM EST Office Visit [facility] [address] [place] [address] [phone] Loida Oliver MD [address] [place] [address] [phone] documented as of this encounter Procedures Procedure Name Priority Date/Time Associated Diagnosis Comments COLONOSCOPY Routine 01/09/2022 documented in this encounter Results * Colonoscopy (01/09/2022) Colonoscopy Hyperplastic polyp Dr. Wilson Historical Provider HEALTH MAINTENANCE Final Result documented in this encounter Visit Diagnoses Not on filedocumented in this encounter Care Teams Workforce Development Program Director Relationship Specialty Start Date End Date [place], MD Loida [address] [place] [address] PCP - General Family Medicine 06/30/18 Lele Hu II, MD [facility] Pulmonology [address] [address] Pulmonary Disease 11/01/24 documented as of this encounter
--- OUTSIDE RECORDS SUMMARY | 2025-04-25 08:16 | XMS_ITS | Encounter Summary ---
Author Organization [employer] Address [address] [facility] 7t [place] [address] Care Team Providers Care Neuropsychology Director Name Role Phone Loida Oliver MD Primary Care Provider +1- [phone] Encounter Details Date Type Department Care Team (Late st Contact Info) Description 11/05/2023 Orders Only [facility] [address] [place], [place] [phone] Loida Oliver MD [address] [place], [place] [phone] Other fatigue (Primary Dx); Acute anxiety; Routine [...] Description 05/20/2025 9:00 AM EST Office Visit [facility] [address] [place], [place] [phone] Loida Oliver MD [address] [place], [place] [phone] documented as of this encounter Procedures Procedure [...] Quantitative, Real-Time PCR (11/19/2023 8:16 AM EDT) [facility] Hepatitis C Antibody Nonreactive Nonreactive [facility] Comment:Antibodies to HCV no t detected; does not exclude early acuteHCV infection. Blood Venous blood specimen / Unknown 11/19/2023 8:16 AM EDT 11/19/2023 11:04 AM EDT Loida Oliver MD LAB BLOOD ORDERABLES Final Result [facility] [address] [place] [phone] * HIV-1/2 Antigen and Antibodies, Fourth Generation, with Reflexes (11/19/2023 8:16 AM EDT) Pathologist [facility] [place] HIV AB/AG Nonreactive Nonreactive [facility] Comment:HIV-1 p24 Ag and/or HIV-1/HIV-2 Ab not detected.A test result that is nonreactive does not exclude thepossibility of exposure to or infection with HIV-1 and/orHIV-2. Nonreactive results in this assay for individualswith prior exposure to HIV-1 and/or HIV-2 may be due toantigen and antibody levels that are below the limit ofdetection of this assay.The Contests[employer]auses HIV Ag/Ab Combo assay result andsupplemental assay results should be interpreted inconjunction with the patient's clinical presentation,history and other laboratory results. If the results areinconsistent with clinical evidence, additional testing issuggested to confirm the result. Blood Venous blood specimen / Unknown 11/19/2023 8:16 AM EDT 11/19/2023 11:04 AM EDT Loida Oliver MD LAB BLOOD ORDERABLES Final Result Performing Organization Address [facility] Co de Phone Number [facility] [address] [place] [phone] * Vitamin D, 25-Hydroxy, Total, Immunoassay (11/19/2023 8:16 AM EDT) Pathologist [facility] [place] Vitamin D 25-OH Total 62.5 >30 ng/mL [facility] Comment:Health Based Referen ce Values*< 20 ng/mL [id number] ng/mL Insufficient> 30 ng/mL Sufficient*Atiya SANCHES. N [...] BLOOD ORDERABLES Final Result Performing Organization Address [facility] de Phone Number [facility] [address] [place] [phone] * CBC auto differential (11/19/2023 8:16 AM EDT) Neutrophils Percent Auto 50.2 45 - 73 % [facility] Imm Gran Pct Auto 0.4 0.0 - 0.4 % [facility] Lymphocytes Percent Auto 38.6 20 - 40 % [facility] Monocytes Percent Auto 6.3 2 - 11 % [facility] Eosinophils Percent Auto 3.6 0 - 4 % [facility] Basophils Percent Auto 0.9 0 - 2 % [facility] Neutrophils Absolute Auto 2.3 2.0 - 8.3 x10*3/uL [facility] Imm Gran Abs Auto 0.02 0.00 - 0.03 X10*3/uL [facility] Lymphocytes Absolute Auto 1.7 1.2 - 4.9 X10*3/uL [facility] Monocytes Absolute Auto 0.3 0.1 - 1.2 X10*3/uL [facility] Eosinophils Absolute Auto 0.2 0.0 - 0.4 X10*3/uL [facility] Basophils Absolute Auto 0.0 0.0 - 0.2 X10*3/uL [facility] Blood Venous blood specimen / Unknown 11/19/2023 8:16 AM EDT 11/19/2023 11:04 AM EDT Loida Oliver MD LAB BLOOD ORDERABLES Final Result Performing Organization Address City/[facility]/ZIP Co de Phone Number [facility] [address] [place] [phone] * TSH with Reflex to Free T4 (11/19/2023 8:16 AM EDT) TSH reflex Free T4 1.26 0.32 - 4.0 uIU/mL [facility] Blood 11/19/2023 8:16 AM EDT 11/19/2023 11:04 AM EDT Loida Oliver MD LAB BLOOD ORDERABLES Final Result Performing Organization Address City/[facility]/ZIP Co de Phone Number [facility] [address] [place] [phone] * (ABNORMAL) Basic Metabolic Panel (11/19/2023 8:16 AM EDT) Sodium 142 135 - 145 mmol/L [facility] Potassium 4.7 3.3 - 5.1 mmol/L [facility] Chloride 106 96 - 108 mmol/L [facility] Carbon Dioxide 27 22 - 29 mmol/L [facility] Anion Gap 14 12 - 20 [facility] Urea Nitrogen (BUN) 19(H) 9 - 16 mg/dL [facility] Creatinine, Serum 0.95 0.5 - 1.4 mg/dL [facility] Estimated Glomerular Filt Rate >60 [facility] Comment:NOTE: For -Am erican individuals, multiply the result by 1.210.Chronic Kidney Disease: Estimated GFR < 60 mL/min/1.19n5Iwwcyy Kidney Disease: Estimated GFR < 15 mL/min/1.73m2 Glucose 96 60 - 115 mg/dL [facility] Calcium 9.6 8.4 - 10.2 mg/dL [facility] Blood Venous blood specimen / Unknown 11/19/2023 8:16 AM EDT 11/19/2023 11:04 AM EDT us Loida Oliver MD LAB BLOOD ORDERABLES Final Result [facility] [address] [place] [phone] * (ABNORMAL) Lipid Panel, Standard (11/19/2023 8:16 AM EDT) Triglycerides 130 <150 mg/dL [facility] Comment:Desirable Triglyceri de: less than 150 mg/dLBorderline High Triglyceride 150-199 mg/dLHigh Triglyceride: 200-499 mg/dLVery High Triglyceride: greater than or equal to 5OO mg/dL Cholesterol 184 <200 mg/dL [facility] Comment:Desirable Cholestero l: less than 200 mg/dLBorderline High Cholesterol: 200-239 mg/dLHigh Cholesterol: greater than 239 mg/dL LDL Cholesterol Calculated 112(H) <100 mg/dL [facility] Comment:Desirable LDL: less than 100 mg/dLNear Optimal/Above Optimal LDL: 110- 129 mg/dLBorderline High LDL: 130-159 mg/dLHigh LDL: 160-189 mg/dLVery High LDL: greater than or equal to 190 mg/dL HDL Cholesterol 46 >40 mg/dL [facility] Comment:Desirable HDL: great er than 40 mg/dL Note: This HDL assay may give artificially low results in patients with liver disease. Blood Venous blood specimen / Unknown 11/19/2023 8:16 AM EDT 11/19/2023 11:04 AM EDT Loida Oliver MD LAB BLOOD ORDERABLES Final Result Performing Organization Address City/[facility]/ZIP Co de Phone Number [facility] [address] [place] [phone] * Magnesium (11/19/2023 8:16 AM EDT) Magnesium 2.2 1.6 - 2.6 mg/dL [facility] Blood Venous blood specimen / Unknown 11/19/2023 8:16 AM EDT 11/19/2023 11:04 AM EDT Loida Oliver MD LAB BLOOD ORDERABLES Final Result Performing Organization Address City/[facility]/ZIP Co de Phone Number [facility] [address] [place] [phone] * Testosterone, Total, males (Adult), [place] (11/19/2023 8:16 AM EDT) Testosterone, Total 329 250 - 1100 ng/dL [facility] Comment:For additional infor laura, please refer tohttp://education.[employer]/faq/Gu[email or web address](This link is being provided for informational/educational purposes only.)This test was developed and its analytical performancecharacteristics have been determined by [employer] [place], [place]. It hasnot been cleared or approved by the U.S. Food and DrugAdministration. This assay has been validated pursuantto the CLIA regulations and is used for clinicalpurposes.THIS TEST WAS PERFORMED AT:[employer] [place] [id number] CHEEK MD,PHD Blood Venous blood specimen / Unknown 11/19/2023 8:16 AM EDT 11/19/2023 11:04 AM EDT us Loida Oliver MD LAB BLOOD ORDERABLES Final Result [facility] [address] [place] [phone] * (ABNORMAL) CBC (11/19/2023 8:16 AM EDT) White Blood Count 4.5(L) 4.8 - 10.8 X10*3/uL [facility] Red Blood Count 5.12 4.60 - 5.80 X10*6/uL [facility] Hemoglobin 14.8 14.0 - 18.0 g/dl [facility] Hematocrit 44.7 42.0 - 52.0 % [facility] Mean Corpuscular Volume 87.3 80.0 - 98.0 fL [facility] Mean Corpuscular Hemoglobin 28.9 27.0 - 33.0 pg [facility] Mean Corpuscular HGB Conc 33.1 31.0 - 36.0 g/dl [facility] Red Cell Distribution Width 12.2 11.0 - 16.0 % [facility] Platelet Count 281 160 - 400 X10*3/uL [facility] Mean Platelet Volume 9.5 9.4 - 12.4 fL [facility] NRBC Pct Auto 0.0 0.0 - 0.2 /100WBC [facility] NRBC Abs Auto 0.000 0.0 - 0.012 X10*3/uL [facility] Blood Venous blood specimen / Unknown 11/19/2023 8:16 AM EDT 11/19/2023 11:04 AM EDT Loida Oliver MD LAB BLOOD ORDERABLES Final Result Performing Organization Address [facility] Co de Phone Number [facility] [address] [place] [phone] * (ABNORMAL) Hepatic Function Panel (11/19/2023 8:16 AM EDT) Bilirubin, Total 0.5 0.0 - 1.0 mg/dL [facility] Bilirubin, Direct 0.2 0.0 - 0.5 mg/dL [facility] Aspartate Amino Transferase 23 5 - 37 U/L [facility] Alanine Aminotransferase 20 0 - 40 U/L [facility] Total Protein 8.2(H) 6.5 - 8.0 g/dL [facility] Albumin Level 4.5 3.5 - 5.0 g/dL [facility] Alkaline Phosphatase 63 39 - 117 U/L [facility] Blood Venous blood specimen / Unknown 11/19/2023 8:16 AM EDT 11/19/2023 11:04 AM EDT Loida Oliver MD LAB BLOOD ORDERABLES Final Result Performing Organization Address [facility] Co de Phone Number [facility] [address] [place] [phone] documented in this encounter Visit Diagnoses Diagnosis Other fatigue- Primary Acute anxiety Routine screening for STI (sexually transmitted infection) Screening examination for venereal disease Dyslipidemia Other and unspecified hyperlipidemia Severe persistent asthma without complication (HCC) Body mass index (BMI) 38.0-38.9, adult documented in this encounter Additional Health Concerns Assessment Noted Time PHQ-9 Depression Total Score: 0 05/07/20 23 10:28 AM EST documented as of this encounter Care Teams Neuropsychology Director Relationship Specialty Start Date End Date [place] [address] PCP - General Family Medicine 06/30/18 Lele Hu II, MD [facility] Pulmonology [address] [place] [phone] Pulmonary Disease 11/01/24 documented as of this encounter
--- OUTSIDE RECORDS SUMMARY | 2025-04-25 08:16 | XMS_ITS | Encounter Summary ---
Author Organization [facility] Address [address] [place] [address] [place] [phone] Phone Care Team Providers Care Belly Roller Name Role Phone Loida Oliver MD Primary Care Provi larissa Encounter Details Date Type Department Care Team (Late st Contact Info) Description 01/19/2018 Transcribe Orders [facility] [address] [place], [place] [phone] Loida Oliver MD [address] [place] [address] Routine medical exam (Primary Dx) Social History Tobacco Use Types Packs/Day Years [...] documented as of this encounter Results * (ABNORMAL) Lipid panel (01/19/2018 8:26 AM EDT) HDL 55 mg/dL [facility] Comment: Interpretation: Risk Level Males Decreased >45 mg/dL Average 40-45 mg/dL Increased <40 mg/dL CHOLESTEROL 249(H) 0 - 240 mg/dL [facility] TRIGLYCERIDES 201(H) 30 - 160 mg/dL [facility] LDL 154(H) 50 - 129 mg/dL [facility] Comment: LDL levels in terms of risk for coronary heart disease: <100 mg/dL: Optimal 100-129 mg/dL: Near or above optimal 130-159 mg/dL: Borderline high 160-189 mg/dL: High >190 mg/dL: Very High CARDIAC RISK RATIO 4.5 3.4 - 5.0 [facility] Blood 01/19/2018 8:26 AM EDT 01/19/2018 8:30 AM EDT us Loida Oliver MD LAB BLOOD ORDERABLE S Final Result [facility] [address] [place] [address] documented in this encounter Visit Diagnoses Diagnosis Routine medical exam- Primary Routine general medical examination at a health care facility documented in this encounter Additional Health Concerns Infection Onset Date Last Indicated Resolved Time CoV-Risk 07/17/2020 07/17/2020 07/27/2020 1:24 AM EST CoV-Risk 06/16/2022 06/16/2022 06/27/2022 1:22 AM EST CoV-Risk 09/28/2024 09/28/2024 10/09/2024 1:22 AM EDT CoV-Risk 03/04/2025 03/04/2025 03/15/2025 1:21 AM EDT documented as of this encounter Care Teams Belly Roller Relationship Specialty Start Date End Date Loida Oliver MD [address] [place] [phone] PCP - General Family Medicine 08/22/17 documented as of this encounter Additional Source Comments The information contained in this document represents components of the legal health record. It is not the complete legal health record.[facility]
--- OUTSIDE RECORDS SUMMARY | 2025-04-25 08:16 | XMS_ITS | Encounter Summary ---
Author Organization [facility] Address [address] [place] [address] [place] [phone] Phone Care Team Providers Care Long Lines Operator Name Role Phone Loida Oliver MD Primary Care Provi larissa Encounter Details Date Type Department Care Team (Late st Contact Info) Description 04/02/2018 Transcribe Orders [facility] Laboratory [address] [place], [place] [phone] Loida Oliver MD [address] [place] [address] Hyperlipidemia, unspecified hyperlipidemia type (Primary Dx) Social History Tobacco Use Types [...] this encounter Results * (ABNORMAL) Lipid panel (04/02/2018 8:48 AM EDT) HDL 51 mg/dL [facility] Comment: Interpretation: Risk Level Males Decreased >45 mg/dL Average 40-45 mg/dL Increased <40 mg/dL CHOLESTEROL 215 0 - 240 mg/dL [facility] TRIGLYCERIDES 153 30 - 160 mg/dL [facility] LDL 133(H) 50 - 129 mg/dL [facility] Comment: LDL levels in terms of risk for coronary heart disease: <100 mg/dL: Optimal 100-129 mg/dL: Near or above optimal 130-159 mg/dL: Borderline high 160-189 mg/dL: High >190 mg/dL: Very High CARDIAC RISK RATIO 4.2 3.4 - 5.0 C [facility] Blood 04/02/2018 8:48 AM EDT 04/02/2018 8:50 AM EDT us Loida Oliver MD LAB BLOOD ORDERABLE S Final Result [address] [address] documented in this encounter Visit Diagnoses Diagnosis Hyperlipidemia, unspecified hyperlipidemia type- Primary documented in this encounter Additional Health Concerns Infection Onset Date Last Indicated Resolved Time CoV-Risk 07/17/2020 07/17/2020 07/27/2020 1:24 AM EST CoV-Risk 06/16/2022 06/16/2022 06/27/2022 1:22 AM EST CoV-Risk 09/28/2024 09/28/2024 10/09/2024 1:22 AM EDT CoV-Risk 03/04/2025 03/04/2025 03/15/2025 1:21 AM EDT documented as of this encounter Care Teams Long Lines Operator Relationship Specialty Start Date End Date Loida Oliver MD [address] [place] [phone] PCP - General Family Medicine 08/22/17 documented as of this encounter Additional Source Comments The information contained in this document represents components of the legal health record. It is not the complete legal health record.[facility]
--- OUTSIDE RECORDS SUMMARY | 2025-04-25 08:16 | XMS_ITS | Encounter Summary ---
Author Organization [facility] Address [address] [place] [phone] Phone Care Team Providers Care Geology Technician Name Role Phone Loida Oliver MD Primary Care Provi larissa Encounter Details Date Type Department Care Team (Late st Contact Info) Description 01/31/2018 Procedure [facility], Ct Scan - [address] [address] Social History Tobacco Use Types Packs/Day Years [...] documented as of this encounter Care Teams Geology Technician Relationship Specialty Start Date End Date Benito, Loida Levy MD [address] [place] [address] PCP - General Family Medicine 08/22/17 documented as of this encounter Additional Source Comments The information contained in this document represents components of the legal health record. It is not the complete legal health record.[facility]
== END 2025-04-25 08:05 | disposition home or self-care (01) ==
LOC: HO.HHCL 08:04
PROVIDERS: PCP Family Medicine; Visit Provider Family Medicine
DX: E29.1 Testicular hypofunction (principal)
CPT/HCPCS: 36415; 84403

== ENCOUNTER 2025-06-20 08:26 | Outpatient (REF) | payer MEDICARE, MEDICAID, SELFPAY ==
--- OUTSIDE RECORDS SUMMARY | 2025-06-19 23:59 | XMS_ITS | Continuity of Care Document ---
Author Organization [facility] Address [address] [place] [address]- Care Team Providers Care Aviation Mechanic Name Role Phone Loida Oliver MD Primary Care Physician Encounter [facility] ACCT R [id number] Date(s): 02/19/25 - 06/19/25 [facility] [address] [place], [place] [address] Attending Physician: Murtaza Hu II, MD Admitting Physician: Murtaza Hu II, MD Referring Physician: Loida Oliver MD Encounter Type: Pre-OutPatient One Time Allergies, Adverse Reactions, Alerts Substance Criticality Severity Reaction Reaction Severity Status shellfish Active Cipro Active Medications Aerochamber See Instructions, # 1 applicator, Maintenance, Use with all MDI's, 02/04/14 11:05:37 AM EDT, Compound Start Date: 02/04/14 Status: Ordered Medication Dispense Status: Completed Quantity: 1.0 Unit: applicator Total Allowed Fills: 1 Fills Dispensed: 0 albuterol 0.083% inhalation solution 0 Refills, Maintenance, 07/30/23 1:21:00 PM EST, Partial fill upon patient request if the prescription is for a schedule II opioid drug. Start Date: 07/30/23 Status: Ordered Medication Dispense Status: Completed Total Allowed Fills: 1 Fills Dispensed: 0 Durable Medical Equipment See Instructions, Maintenance, Cpap supplies mask, tubing, filters, head gear, chin strap, and water chamber x 12 refills DX VANESSA G47.33 [facility] [employer] , 11/07/17 10:45:46 AM EDT, Compound Start Date: 11/07/17 Status: Ordered Medication Dispense Status: Completed Total Allowed Fills: 1 Fills Dispensed: 0 fluticasone 93 mcg/inh nasal spray 2 sprays = 186 mcg, Nares, Both, 2 times a day, # 1 each, 11 Refills, Maintenance, 10/27/24 10:46:00AM EDT, [facility] #[id number], Partial fill upon patient request if the prescription is for aschedule II opioid drug., 2 sprays Nares, Both 2 times a day, 177.8, cm, 10/27/24 10:21:00 EDT, Height, 99.4, kg, 10/16/24 9:17:00 EDT, Dry Weight Start Date: 10/27/24 Status: Ordered Medication Dispense Status: Completed Quantity: 1.0 Unit: each Total Allowed Fills: 12 Fills Dispensed: 0 Nebulizer Supplies rx Nebulizer Supplies rx, See Instructions, # 1 each, Refills 11, Tot. Refills 11, Maintenance, Nebulizer A7003 Neb Disp Set A7014 Neb non-Disp Filter A7005 Neb Non-Disp set A7015 Aerosol Mask A7013 NebDisp Filter Length of need lifetime 99 months. Dx, 03/30/20 9:23:00 AM EDT, Supply Start Date: 03/30/20 Status: Ordered Medication Dispense Status: Completed Quantity: 1.0 Unit: each Total Allowed Fills: 12 Fills Dispensed: 0 PAP Supplies PAP Supplies, See Instructions, # 1 each, Refills 11, Tot. Refills 11, Maintenance, PAP supplies Refill mask and supplies A4604 Heated Tubing/Climate line or A7037 Tubing A7038 or A7039 Filters T8818Hpvp strap A7046 Humidifier Chamber A7035 Headgear A7027, A7030, A7031, A7032, A7033, A7034 Nasal, Full or Pillow Mask and parts Heated Humidifier E0562 DX VANESSA G47.33 length of need Lifetime 99 month, 08/27/19 12:17:00 PM EST, Supply Start Date: 08/27/19 Status: Ordered Medication Dispense Status: Completed Quantity: 1.0 Unit: each Total Allowed Fills: 12 Fills Dispensed: 0 Spiriva Respimat 10 ACT 2.5 mcg/inh inhalation aerosol 2 inhalation = 5 mcg, Inhalation, Daily, not to exceed 2 inhalations/day, # 4 Gm, 11 Refills, Maintenance, 06/06/25 9:40:00 AM EST, Aerosol, [id number], Partial fill upon patient request if the prescription is for a schedule II opioid drug., 177.8, cm, 06/06/25 9:19:00 EST, Height, 100.2, kg, 06/04/25 9:18:00 EST, Dry Weight Start Date: 06/06/25 Status: Ordered Medication Dispense Status: Completed Quantity: 4.0 Unit: g Total Allowed Fills: 12 Fills Dispensed: 0 Ventolin HFA 108 mcg/inh inhalation aerosol with adapter 2 inhalation = 180 mcg, Inhalation, Every 6 hours, PRN as needed for shortness of breath or wheezing, # 8 Gm, 11 Refills, Maintenance, 08/11/24 9:00:00 AM EST, Aerosol, [facility] #[id number], Partial fill upon patient request if the prescription is for a schedule II opioid drug., 177.8, cm, 05/04/24 14:01:00 EST, Height, 96.8, kg, 08/07/24 9:03:00 EST, Dry Weight Start Date: 08/11/24 Status: Ordered Medication Dispense Status: Completed Quantity: 8.0 Unit: g Total Allowed Fills: 12 Fills Dispensed: 0 Wixela Inhub 500 mcg-50 mcg inhalation powder 1 puffs, Inhalation, 2 times a day, RINSE MOUTH AND THROAT AFTER USE, # 60 each, 5 Refills, Maintenance, 03/27/23 4:40:00 PM EDT, [facility] #[id number], 30, INHALE 1 PUFF BY MOUTH TWICE DAILY. RINSE MOUTH AND THROAT AFTER USE, 177.8, cm, 03/22/23 9:17:00 EDT, Height, 94.4, kg, 03/22/23 9:17:00EDT, Dry Weight Start Date: 03/27/23 Status: Ordered Medication Dispense Status: Completed Quantity: 60.0 Unit: each Total Allowed Fills: 1 Fills Dispensed: 0 Xolair 150 mg subcutaneous injection See Instructions, 300 mg Subcutaneous Infusion every 2 weeks, # 4 each, 11 Refills, Maintenance, 08/03/24 8:49:00 AM EST, Partial fill upon patient request if the prescription is for a schedule II opioid drug. Start Date: 08/03/24 Status: Ordered Medication Dispense Status: Completed Quantity: 4.0 Unit: each Total Allowed Fills: 12 Fills Dispensed: 0 Indications: Unspecified asthma, uncomplicated; Problem List Condition Confirmation Course Effective Dates Status Health St [facility] Informant Asthma Confirmed Active Obese class I Confirmed Active Obstructive sleep apnea syndrome Confirmed Active Social History Social History Type Response Smoking Status Never smoker entered on: 08/10/14 Sexual Orientation Self described orien tation: ; Straight or heterosexual Sex Male Sex Representation Male (finding) Patient Care team information Care Team Personnel Name: Eleni Langston RN Position: [facility] AMB Nurse Member Role: Primary Care Nurse Name: Nelly Lowry RN Position: S RN Member Role: Primary Care Nurse Name: Loida Oliver MD Position: [facility] Outreach Member Role: PCP Address: [address] [place] [address] Telecom: Name: Genet Huynh RN Position: S RN Member Role: Primary Care Nurse Name: Giovana Franco RN Position: [facility] Onco RN Member Role: Primary Care Nurse Name: Loida Tompkins RN Position: S RN Member Role: Primary Care Nurse Name: Becca Moore RN Position: S RN Member Role: Primary Care Nurse Name: Sylvester Lo Position: S RN Member Role: Primary Care Nurse Name: Mami Ho Position: S RN Member Role: Primary Care Nurse Name: Oralia Brown RN Position: [facility] AMB Nurse Member Role: Primary Care Nurse Care Team Related Persons Name: FARIBA FUNEZ Insurance Providers Guarantor name: EDNA FUNEZ Health Plan Information #: 1 Payer: MEDICARE B Payer Identifier: Member Number: [id number] Group Number: Subscriber Identifier: [id number] Relationship to Subscriber: self Coverage Type: NA Coverage Verification Date: NA Telecom: NA Address: Health Plan Information #: 2 Payer: [employer] Payer Identifier: NA Member Number: [id number] Group Number: Subscriber Identifier: [id number] Relationship to Subscriber: self Coverage Type: MEDICAID Coverage Verification Date: NA Telecom: NA Address:
--- OUTSIDE RECORDS SUMMARY | 2025-06-20 08:37 | XMS_ITS | Encounter Summary ---
Author Organization [facility] Address [address] [place] [phone] Phone Care Team Providers Care Stick Welder Name Role Phone Loida Oliver MD Primary Care Provi larissa Encounter Details Date Type Department Care Team (Late st Contact Info) Description 01/09/2022 Procedure Pass [facility] Endoscopy Admitting Dept Virtual Department [address] [place] [id number] Social History Tobacco Use Types Packs/Day Years [...] documented as of this encounter Care Teams Stick Welder Relationship Specialty Start Date End Date Loida Oliver MD [address] [place] [id number] PCP - General Family Medicine 08/22/17 documented as of this encounter Additional Source Comments The information contained in this document represents components of the legal health record. It is not the complete legal health record.[facility]
--- OUTSIDE RECORDS SUMMARY | 2025-06-20 08:37 | XMS_ITS | Clinical Summary ---
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 Not on federico e 10/25/2022 Are you concerned about learning? [...] of 2) 2025 COVID-19 VACCINE (3 - ) 02/28/2025 12/17/2020, 11/16/2020 SCREENING FOR DIABETES 06/16/2025 06/16/2022 LIPID PANEL 12/13/2029 12/13/2024, 08/28, 10/26/2018, Additional history exists COLONOSCOPY 01/10/2032 01/09/2022 [...] Procedure Name Priority Date/Time Associated Diagnosis Comments ENDOSCOPY, COLON 01/09/2022 8:28 AM EDT LIPID PANEL Routine 10/26/2018 9:04 AM EDT Hyperlipidemia, unspecified hyperlipidemia type from Last 3 Months or Most Recently Relevant to Health Maintenance Results * ENDOSCOPY, COLON (01/09/2022 8:28 AM EDT) Narrative Transcriptions Sarah Moss MD - 01/09/2022 8:28 AM EDT Patient Name: Juancarlos Bingham MD:: SARAH MOSS MD Procedure Date: 01/09/2022 8:28 AM Date of : 1975 Age: 46 Admit Type: Outpatient Gender: Male Room: [place] [address] Referring MD: Loida Oliver MD Exam Type: [...] 8:28 AM Procedure Code(s): --- Professional --- 11954, Colonoscopy, flexible; with removal of tumor(s), polyp(s), or other lesion(s) by snare technique --- Technical --- 49874, Colonoscopy, flexible; with removal of tumor(s), polyp(s), or other lesion(s) by snare technique Diagnosis Code(s): --- Professional --- Z12.11, Encounter for screening for malignantneoplasm of colon K63.5, Polyp of colon --- Technical --- Z12.11, Encounter for screening for malignantneoplasm of colon K63.5, Polyp of colon CPT copyright 2020 [employer]. All rights reserved. The codes documented in this report are preliminary and upon injection mold technician reviewmay be revised to meet current compliance requirements. Procedure Date: 01/09/2022 8:28:[address] [place] [address] Loida Oliver MD GI PROCEDURE ORDERA BLES Final Result * (ABNORMAL) Lipid panel (10/26/2018 9:04 AM EDT) HDL 57 mg/dL [facility] Comment: Interpretation <40 mg/dL: Low HDL cholesterol (major risk factor for CHD) Greater than or equal to 60 mg/dL: High HDL cholesterol ( negative risk factor for CHD) HDL - cholesterol is affected by a number of factors, e.g. smoking, excerise, hormones, sex and age. CHOLESTEROL 204 0 - 240 mg/dL [facility] TRIGLYCERIDES 165(H) 30 - 160 mg/dL [facility] LDL 114 50 - 129 mg/dL [facility] Comment: LDL levels in terms of risk for coronary heart disease: <100 mg/dL: Optimal 100-129 mg/dL: Near or above optimal 130-159 mg/dL: Borderline high 160-189 mg/dL: High >190 mg/dL: Very High CARDIAC RISK RATIO 3.6 3.4 - 5.0 C [facility] Blood 10/26/2018 9:04 AM EDT 10/26/2018 9:06 AM EDT Loida Oliver MD LAB BLOOD BKR ORDER PRABHJOT Final Result [facility] [address] [place], [place] [id number] from Last 3 Months or Most Recently Relevant to Health Maintenance Insurance MEDICARE PART A & B [employer] MEDICARE PART A & B [place] & [employer] MED[employer] PART A & [facility] MEDIC[facility] PART A & [place] & [facility] [place] MED[place] A & B [facility] Care Teams Division Order Technician Relationship Specialty Start Date End Date [place], Loida Levy MD [address] [place] [address] PCP - General Family Medicine 08/22/17 Additional Source Comments The information contained in this document represents components of the legal health record. It is not the complete legal health record.[facility]
--- OUTSIDE RECORDS SUMMARY | 2025-06-20 08:37 | XMS_ITS | Clinical Summary ---
Author Organization [employer] Address [address] [facility] [facility] [address] [place] [address] Care Team Providers Care Milk Hauler Name Role Phone Loida Oliver MD Primary Care Provider [phone] Allergies Active Allergy Reactions Criticality Noted Date [...] mouth Once per day. 90 tablet 3 05/20/20 25 026 Active Active Problems Problem Noted Date Diagnosed Date Transaminitis 09/13/2024 Overview (05/17/2025): Lab Results Component Value Date AST 31 12/13/2024 AST 41 (H) 09/10/2024 ALT 37 12/13/2024 ALT 41 (H) 09/10/2024 ALT 25 12/19/2021 ALT 19 09/14/2021 TOTALBILIRUB 0.2 12/13/2024 TOTALBILIRUB 0.7 09/10/2024 PLT 246 09/10/2024 CREATININE 0.95 11/19/2023 NA 142 11/19/2023 -discussed lifestyle modification and recheck in 3 months Assessment & Plan (05/20/2025 10:49 AM EST): Orders: Hepatic Function Panel; Future Hx of food anaphylaxis 09/01/2024 Overview (09/01/2024): 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 -allergy desensitization injections facilitated by Dr. Michael -prescribed refill ViyFxf90/30/24 Assessment & Plan (05/20/2025 10:49 AM EST): Hypogonadism in male 09/01/2024 Overview (05/17/2025): Pt getting testosterone from [employer] since May 2024. Reports testosterone was 289. Lab Results Component Value Date TESTTOTAL 114 (A) 04/25/2025 TESTTOTAL 329 11/19/2023 -referred to urology 04/29/25 Assessment & Plan (05/20/2025 10:49 AM EST): Pt getting testosterone from [employer] since May 2024. Reports testosterone was 289. Lab Results Component Value Date TESTTOTAL 114 (A) 04/25/2025 TESTTOTAL 329 11/19/2023 -referred to urology 04/29/25 Orders: Testosterone, Free (Dialysis) And Total, MS; Future Assessment & Plan (09/01/2024 12:59 PM EST): Pt getting testosterone from [employer] since May 2024. Reports testosterone was 289. [...] due after 04/28/25 -eye care facilitated by [facility] -dental home is at the [facility] care proxy given and filed 04/28/24 Assessment & Plan (04/28/2024 9:36 AM EDT): -next physical exam due after 04/28/25 -eye care facilitated by [facility] -dental home is at the [facility] care proxy given and filed 04/28/24 Assessment & Plan (05/07/2023 10:46 AM EST): -next physical exam due after 05/07/2024 -eye care facilitated by [facility] -dental home is t the [facility] Finding of above normal blood pressure 2 05/06/2023 Drug-induced gynecomastia 12/08/20172022 Dyslipidemia 09/02/2012 05/06/2023 Overview (05/20/2025): Lab Results Component Value Date CHOL 209 (H) 12/13/2024 CHOL 154 09/10/2024 CHOL 235 (H) 04/28/2024 TRIG 232 (H) 12/13/2024 TRIG 107 09/10/2024 TRIG 183 (H) 04/28/2024 HDL 44 12/13/2024 HDL 44 09/10/2024 HDL 38 (L) 04/28/2024 LDLCHOLCAL 119 (H) 12/13/2024 LDLCHOLCAL 89 09/10/2024 LDLCHOLCAL 161 (H) 04/28/2024 -continue lifestyle modifications -self discontinued atorvastatin 20 mg but chol ws high -atorvastatin 40mg restarted 04/29/24 -recheck LFTs Assessment & Plan (05/20/2025 10:49 AM EST): Lab Results Component Value Date CHOL 209 (H) 12/13/2024 CHOL 154 09/10/2024 CHOL 235 (H) 04/28/2024 TRIG 232 (H) 12/13/2024 TRIG 107 09/10/2024 TRIG 183 (H) 04/28/2024 HDL 44 12/13/2024 HDL 44 09/10/2024 HDL 38 (L) 04/28/2024 LDLCHOLCAL 119 (H) 12/13/2024 LDLCHOLCAL 89 09/10/2024 LDLCHOLCAL 161 (H) 04/28/2024 -continue lifestyle modifications -self discontinued atorvastatin 20 mg but chol ws high -atorvastatin 40mg restarted 04/29/24 -recheck LFTs Orders: atorvastatin (Lipitor) 40 MG tablet; Take 1 tablet (40 mg) by mouth Once per day. Lipid Panel, Standard; Future Assessment & Plan (04/28/2024 9:26 AM EDT): Lab Results Component Value Date CHOL 184 11/19/2023 TRIG 130 11/19/2023 HDL 46 11/19/2023 LDLCHOLCAL 112 (H) 11/19/2023 -continue lifestyle modifications -self discontinued atorvastatin 20 mg, will hod off until new LFTs -ordered LFT's today 04/28/24 Obstructive sleep apnea syndrome 09/02/2012 05/06/2023 Overview (04/28/2024): -tolerant of CPAP -followed by Dr. Murtaza Hu II, MD at [facility] Assessment & Plan (04/28/2024 9:36 AM EDT): -tolerant of CPAP -followed by Dr. Murtaza Hu II, MD at [facility] Seafood allergy, anaphylaxis 09/02/201212/2022 Overview (04/28/2024): -allergy desensitization injections facilitated by Dr. Michael -he has epinephrine on hand, due for new one -prescribed refill 04/28/24 Assessment & Plan (04/28/2024 9:27 AM EDT): -allergy desensitization injections facilitated by Dr. 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 Murtaza Hu II, MD at [facility], seen on 03/19/24 -latest appt with shoe puller 05/04/24. CT chest showed no evidence of pulmonary hypertension or embolism, a tiny 2mm left upper lobe nodule, although pt does not smoke, no further follow-up needed. Pt is benefiting from Xolair injections. Has had no serious asthma exacerbations. Follow-up in 6 months and continue Xolair infusions. Note from 06/06/25 reviewed He will call Dr. 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 Murtaza Hu II, MD at [facility], seen on 03/19/24 -latest appt with shoe puller 05/04/24. CT chest showed no evidence of pulmonary hypertension or embolism, a tiny 2mm left upper lobe nodule, although pt does not smoke, no further follow-up needed. Pt is benefiting from Xolair injections. Has had no serious asthma exacerbations. Follow-up in 6 months and continue Xolair infusions. Note from 10/27/24 reviewed He will call Dr. Hu to resume Advair while awaits next apt to discuss maintenance inhaler Assessment & Plan (04/28/2024 9:28 AM EDT): [...] by Dr. Murtaza Hu II, MD at [facility], seen last 03/19/24 Resolved Problems Problem Noted Date Diagnosed Date Resolved Date Hospital discharge follow-up 03/14/2025 05/17/2025 Colon cancer screening 05/06/202305/07 Encounters Date Type Department Care Team Description 05/20/2025 9:00 AM EST Office Visit [address] [address] Loida Oliver MD Dyslipidemia (Primary Dx); Transaminitis; Severe persistent asthma without complication (HCC); Hx of food anaphylaxis; Hypogonadism in male; Encounter for immunization 05/20/2025 Travel 05/19/[address] [address] Loida Oliver MD chartprep 05/12/2025 Patient Outreach [address] [address] Loida Oliver MD Pre-visit Planning (SDOH Screening negative and Tobacco screening negative) 04/29/2025 Results Follow-Up [address] [address] Loida Oliver MD Testosterone, Total, males (Adult), [place] 04/29/[address] [facility] [address] [place], [place] [phone] Loida Oliver MD Hypogonadism in male (Primary Dx) 04/06/[address] [facility] [address] [place], [place] [phone] Loida Oliver MD Hypogonadism in male (Primary Dx) from Last 3 Months Immunizations Immunization Administration Dates Next Due Hep B, adult 05/20/2025,04/28/2024,05/07/2023 INFLUENZA VACCINE QUADRIVALE NT RECOMBINANT PRESERVATIVE FREE RIV4 03/15/2021 Influenza injectable quadriv alent preservative free 03/06/2018,02/28/2015 Influenza, IIV3, injectable 04/06/2023, 0 Influenza, Split (incl. moni fied surface antigen) 02/11/2014 Influenza, intradermal, quad rivalent, preservative free 04/08/2017 Influenza, seasonal, injecta ble, preservative free 05/20/2025,04/28/2024,03/11/2016 MMR 12/21/2024 Moderna Covid-19 Vaccine 12+ 12/17/2020,11/17/19 21 Pneumococcal Conjugate PCV 13 09/11/2017 Pneumococcal Conjugate PCV 20 05/20/2025 Pneumococcal Polysaccharide PPSV23 08/11/2014, Tdap 05/07/2023,09/25/2011 Family History Medical History Relation Name Comments Diabetes Mother Cancer Neg Hx Relation Name Status Comments Mother Social History Tobacco Use Types Packs/Day Years Used Date Smoking Tobacco: Never Passive Smoke Exposure: Never Smokeless Tobacco: Never Tobacco Cessation:Counseling Given: Not Answered Depression Answer Date Recorded Patient Health Questionnaire-9 Score 2 05/20/2025 Patient Health Questionnaire-9 Score 2 05/20/2025 Last PHQ-9: Questionnaire Data Not on file 1 07/20/2024 Housing Stability Answer Date Recorded What is your housing situation today? I have ashley cyr 05/12/[address] you li ve. Do you have problems with any of the following? None of the above 05/12/2025 Food Insecurity Answer Date Recorded Within the past 12 months, y ou worried that your food would run out before you got money to buy more: Never True 05/12/2025 Within the past 12 months,th e food you bought just didn't last and you didn't have enough money to get more: Never True Transportation Answer Date Recorded In the past 12 months, has l ack of transportation kept you from medical appts, meetings, work or from getting things needed for daily living? No 05/12/2025 Utilities Answer Date Recorded In the past 12 months, has t he electric, gas, oil or water company threatened to shut off services in your home? No 05/12/2025 Depression Answer Date Recorded Patient Health Questionnaire-2 Score 0 05/20/2025 Internet Access Answer Date Recorded Internet Access Q1 Yes 05/12/2025 Internet Access Q2 Not on file 05/12/2025 Sex and Gender Information Value Date Recorded Sex Assigned at Male 04/29/2022 10:14 AM EDT Legal Sex Male 10:14 AM EDT Gender Identity Male 04/29/2022 10:14 AM EDT Sexual Orientation Choose not to disclose 2021 10:14 AM EDT Last Filed Vital Signs Vital Sign Reading Time Taken Comments Blood Pressure 134/72 05/20/2025 8:58 AM EST Pulse 68 05/20/2025 8:58 AM EST Temperature 37.2 C (98.9 F) 05/20/2025 8:58 AM EST Respiratory Rate 20 05/20/2025 8:58 AM EST Oxygen Saturation 98% 05/20/2025 8:58 AM EST Inhaled Oxygen Concentration - - Weight 99.3 kg (219 lb) 05/20/2025 8:58 AM EST Height 177.8 cm (5' 10 ) 05/20/2025 8:58 AM EST Body Mass Index 31.42 05/20/2025 8:58 AM EST Plan of Treatment Health Maintenance Due Date Last Done Comments CT Colonography 1975 FIT DNA/Cologuard 1975 FIT 1975 FOBT 1975 Sigmoidoscopy 1975 RSV Patients and Patients Aged 60 years or older (1 - Risk 50-74 years 1-dose series) 2025 Zoster Vaccines (1 of 2) 2025 Family Planning (PISQ) 09/01/2025 09/01/2024 SDOH Screening 05/12/2026 05/12/2025 Alcohol/Substance Use Screening 05/20/2026 05/20/2025 COVID-19 Vaccine (3 - season) 2026 12/17/2020, 11/16/2020 Postponed from 02/28/2025 (Patient Refused) Depression Screening 05/20/2026 05/20/2025, 05/20/20 25 Disability Screening 05/20/2026 05/20/2025 Tobacco Screening 05/20/2026 05/20/2025 Lipid Panel 12/13/2029 12/13/2024, 08/28, 04/28/2024, Additional history exists Colonoscopy 01/10/2032 01/09/2022 Colorectal Cancer Screening 01/10/2032 DTaP/Tdap/Td Vaccines (3 - Td or Tdap) 05/07/2033 05/07/2023, 09/25/2011 HIV Screening Completed 11/19/2023 Hepatitis C Screening Completed 11/19/2023 Hepatitis B Vaccines Completed 05/20/2025, 04/28/2024, 05/07/2023 Influenza Vaccine Completed 05/20/2025, , 04/06/2023, Additional history exists Pneumococcal Vaccine: 50+ Years Completed 05/20/2025, 09/11/2017, 08/11/2014, Additional history exists HIB Vaccines Aged Out [...] Procedure Name Priority Date/Time Associated Diagnosis Comments TESTOSTERONE, TOTAL, MALES (ADULT), [place] Routine 04/25/2025 8:09 AM EDT Hypogonadism in male LIPID PANEL, STANDARD Routine 12/13/2024 1:59 PM [...] Relevant to Health Maintenance Results * (ABNORMAL) Testosterone, Total, males (Adult), [place] (04/25/2025 8:09 AM EDT) [facility] Testosterone, Total 114(A) 250 - 1100 ng/dL [facility] Comment:For additional infor laura, please refer [email or web address]/faq/[email or web address](This link is being provided for informational/educational purposes only.)This test was developed and its analytical performancecharacteristics have been determined by [facility] [place], [place]. It hasnot been cleared or approved by the U.S. Food and DrugAdministration. This assay has been validated pursuantto the CLIA regulations and is used for clinicalpurposes.THIS TEST WAS PERFORMED AT:[id number] [place] [address]NDZTKNBINDIRA CHEEK MD,PHD Blood Venous blood specimen / Unknown 04/25/2025 8:09 AM EDT 04/25/2025 11:41 AM EDT Loida Oliver MD LAB BLOOD ORDERABLES Final Result Performing Organization Address City/[facility]/ZIP Co de Phone Number [facility] [address] [place] [address] [phone] * (ABNORMAL) Lipid Panel, Standard (12/13/2024 1:59 PM EDT) Triglycerides 232(H) <150 mg/dL [facility] Comment:Desirable Triglyceri de: less than 150 mg/dLBorderline High Triglyceride 150-199 mg/dLHigh Triglyceride: 200-499 mg/dLVery High Triglyceride: greater than or equal to 5OO mg/dL Cholesterol 209(H) <200 mg/dL [facility] Comment:Desirable Cholestero l: less than 200 mg/dLBorderline High Cholesterol: 200-239 mg/dLHigh Cholesterol: greater than 239 mg/dL LDL Cholesterol Calculated 119(H) <100 mg/dL [facility] Comment:Desirable LDL: less than 100 mg/dLNear Optimal/Above Optimal LDL: 110- 129 mg/dLBorderline High LDL: 130-159 mg/dLHigh LDL: 160-189 mg/dLVery High LDL: greater than or equal to 190 mg/dL HDL Cholesterol 44 >40 mg/dL [facility] Comment:Desirable HDL: great er than 40 mg/dL Note: This HDL assay may give artificially low results in patients with liver disease. Blood Venous blood specimen / Unknown 12/13/2024 1:59 PM EDT 12/13/2024 4:02 PM EDT Loida Oliver MD LAB BLOOD ORDERABLES Final Result Performing Organization Address City/[facility]/ZIP Co de Phone Number [facility] [address] [place] [address] [phone] * Hepatitis C Antibody with Reflex to HCV, RNA, Quantitative, Real-Time PCR (11/19/2023 8:16 AM EDT) Hepatitis C Antibody Nonreactive Nonreactive [facility] Comment:Antibodies to HCV no t detected; does not exclude early acuteHCV infection. Blood Venous blood specimen / Unknown 11/19/2023 8:16 AM EDT 11/19/2023 11:04 AM EDT Loida Oliver MD LAB BLOOD ORDERABLES Final Result Performing Organization Address [facility]/ZIP Co de Phone Number [facility] [address] [place] [address] [phone] * HIV-1/2 Antigen and Antibodies, Fourth Generation, with Reflexes (11/19/2023 8:16 AM EDT) HIV AB/AG Nonreactive Nonreactive [facility] Comment:HIV-1 p24 Ag and/or HIV-1/HIV-2 Ab not detected.A test result that is nonreactive does not exclude thepossibility of exposure to or infection with HIV-1 and/orHIV-2. Nonreactive results in this assay for individualswith prior exposure to HIV-1 and/or HIV-2 may be due toantigen and antibody levels that are below the limit ofdetection of this assay.The [employer] HIV Ag/Ab Combo assay result andsupplemental assay results should be interpreted inconjunction with the patient's clinical presentation,history and other laboratory results. If the results areinconsistent with clinical evidence, additional testing issuggested to confirm the result. Blood Venous blood specimen / Unknown 11/19/2023 8:16 AM EDT 11/19/2023 11:04 AM EDT oLida Oliver MD LAB BLOOD ORDERABLES Final Result Performing Organization Address [facility]/ZIP Co de Phone Number [facility] [address] [place] [address] [phone] * Hm Colonoscopy (01/09/2022) Colonoscopy Hyperplastic polyp Dr. Wilson Madina Whitten MD HEALTH MAINTENANCE Final Result from Last 3 Months or Most Recently Relevant to Health Maintenance Insurance [facility] STANDARD MEDICARE Advance Directives Documents on File Type Date Recorded Patient Wildlife Forensic Geneticist Expl anation Advance Directives and Living Will 04/29/2024 2:03 PM Health Care Proxy Care Teams Milk Hauler Relationship Specialty Start Date End Date Yoakum, MD Loida [address] [place] [phone] PCP - General Family Medicine 06/30/18 Lele Hu II, MD [facility] [address] [facility] [address] [place] [address] Pulmonary Disease 11/01/24
--- OUTSIDE RECORDS SUMMARY | 2025-06-20 08:38 | XMS_ITS | Encounter Summary ---
Author Organization [facility] Address [address] [place] [address] [place] [phone] Phone Care Team Providers Care Oral Surgeon Name Role Phone Loida Oliver MD Primary Care Provi larissa Encounter Details Date Type Department Care Team (Late st Contact Info) Description 08/11/2018 Transcribe Orders [facility] Main [address] [place], [place] [phone] Loida Oliver MD [address] [place] [phone] Hyperlipidemia, unspecified hyperlipidemia type (Primary Dx) Social [...] this encounter Results * (ABNORMAL) Lipid panel (08/11/2018 8:48 AM EST) HDL 48 mg/dL [facility] Comment: Interpretation <40 mg/dL: Low HDL cholesterol (major risk factor for CHD) Greater than or equal to 60 mg/dL: High HDL cholesterol ( negative risk factor for CHD) HDL - cholesterol is affected by a number of factors, e.g. smoking, excerise, hormones, sex and age. CHOLESTEROL 214 0 - 240 mg/dL [facility] TRIGLYCERIDES 257(H) 30 - 160 mg/dL [facility] LDL 115 50 - 129 mg/dL [facility] Comment: LDL levels in terms of risk for coronary heart disease: <100 mg/dL: Optimal 100-129 mg/dL: Near or above optimal 130-159 mg/dL: Borderline high 160-189 mg/dL: High >190 mg/dL: Very High CARDIAC RISK RATIO 4.5 3.4 - 5.0 C [facility] Blood 08/11/2018 8:48 AM EST 08/11/2018 8:49 AM EST Loida Oliver MD LAB BLOOD BKR ORDER PRABHJOT Final Result Performing Organization Address City/State/[facility] Co de Phone Number [facility] [address] [place] [address] documented in this encounter Visit Diagnoses Diagnosis Hyperlipidemia, unspecified hyperlipidemia type- Primary documented in this encounter Additional Health Concerns Infection Onset Date Last Indicated Resolved Time CoV-Risk 07/17/2020 07/17/2020 07/27/2020 1:24 AM EST CoV-Risk 06/16/2022 06/16/2022 06/27/2022 1:22 AM EST CoV-Risk 09/28/2024 09/28/2024 10/09/2024 1:22 AM EDT CoV-Risk 03/04/2025 03/04/2025 03/15/2025 1:21 AM EDT documented as of this encounter Care Teams Oral Surgeon Relationship Specialty Start Date End Date Loida Oliver MD [address] [place] [phone] PCP - General Family Medicine 08/22/17 documented as of this encounter Additional Source Comments The information contained in this document represents components of the legal health record. It is not the complete legal health record.[facility]
--- OUTSIDE RECORDS SUMMARY | 2025-06-20 08:38 | XMS_ITS | Encounter Summary ---
Author Organization [facility] Address [address] [place] [phone] Phone Care Team Providers Care Screen Stretcher Name Role Phone Loida Oliver MD Primary Care Provi larissa Encounter Details Date Type Department Care Team (Late st Contact Info) Description 01/31/2018 Procedure [facility], Ct Scan - [address] [address] Social History Tobacco Use Types Packs/Day Years [...] documented as of this encounter Care Teams Screen Stretcher Relationship Specialty Start Date End Date [place], Loida Levy MD [address] [place] [address] PCP - General Family Medicine 08/22/17 documented as of this encounter Additional Source Comments The information contained in this document represents components of the legal health record. It is not the complete legal health record.[facility]
--- OUTSIDE RECORDS SUMMARY | 2025-06-20 08:38 | XMS_ITS | Encounter Summary ---
Author Organization [facility] Address [address] [place] [phone] Phone Care Team Providers Care Resource Analyst Name Role Phone Benito, Loida Levy MD Primary Care Provi larissa Encounter Details Date Type Department Care Team (Late st Contact Info) Description 12/27/2019 Ancillary Orders Virtual Department [address] [place] [address] Eber Bai MD [address] [place] [address], [address] [place] [address] [email or web address] Calculus of kidney Social History Tobacco Use [...] renal stones on today's study POS - [id number] Narrative 12/29/2019 10:58 AM EDT EXAM: XR [...] renal stones on today's study POS - [id number] Eber Bai MD IMG XR ABDOMEN Final [...] documented as of this encounter Care Teams Resource Analyst Relationship Specialty Start Date End Date Loida Oliver MD [address] [place] [phone] PCP - General Family Medicine 08/22/17 documented as of this encounter Additional Source Comments The information contained in this document represents components of the legal health record. It is not the complete legal health record.[facility]
--- OUTSIDE RECORDS SUMMARY | 2025-06-20 08:38 | XMS_ITS | Encounter Summary ---
Author Organization [facility] Address [address] [place] [address] [place] [phone] Phone Care Team Providers Care Manager Community Relations Name Role Phone Loida Oliver MD Primary Care Provi larissa Encounter Details Date Type Department Care Team (Late st Contact Info) Description 01/19/2018 Transcribe Orders [facility]le[facility] Main [address] [place], [place] [phone] Loida Oliver MD [address] [place], [place] [phone] Routine medical exam (Primary Dx) Social History [...] (01/19/2018 8:26 AM EDT) HDL 55 mg/dL [facility] Comment: Interpretation: Risk Level Males Decreased >45 mg/dL Average 40-45 mg/dL Increased <40 mg/dL CHOLESTEROL 249(H) 0 - 240 mg/dL [facility] TRIGLYCERIDES 201(H) 30 - 160 mg/dL [facility] LDL 154(H) 50 - 129 mg/dL [facility] Comment: LDL levels in terms of risk for coronary heart disease: <100 mg/dL: Optimal 100-129 mg/dL: Near or above optimal 130-159 mg/dL: Borderline high 160-189 mg/dL: High >190 mg/dL: Very High CARDIAC RISK RATIO 4.5 3.4 - 5.0 C [facility] Blood 01/19/2018 8:26 AM EDT 01/19/2018 8:30 AM EDT us Loida Oliver MD LAB BLOOD BKR ORDER PRABHJOT Final Result [address] [address] documented in this encounter Visit Diagnoses Diagnosis [...] documented as of this encounter Care Teams Manager Community Relations Relationship Specialty Start Date End Date Loida Oliver MD [address] [place] [phone] PCP - General Family Medicine 08/22/17 documented as of this encounter Additional Source Comments The information contained in this document represents components of the legal health record. It is not the complete legal health record.[facility]
--- OUTSIDE RECORDS SUMMARY | 2025-06-20 08:38 | XMS_ITS | Encounter Summary ---
Author Organization [employer] Address [address] [facility] 7t [place] [address] Care Team Providers Care Asset Specialist Name Role Phone Loida Oliver MD Primary Care Provider [phone]- [phone] Encounter Details Date Type Department Care Team (Late st Contact Info) Description 08/06/2022 Abstract [facility] [address] [place], [place] [phone] Loida Oliver MD [address] [place], [place] [phone] Social History Tobacco Use Types Packs/Day Years [...] on filedocumented in this encounter Care Teams Asset Specialist Relationship Specialty Start Date End Date Loida Oliver MD [address] [place], [place] [phone] PCP - General Family Medicine 1/1/19 Lele Hu II, MD [facility] Pulmonology [address] [facility] [address] [place] [address] Pulmonary Disease 11/01/24 documented as of this encounter
--- OUTSIDE RECORDS SUMMARY | 2025-06-20 08:38 | XMS_ITS | Encounter Summary ---
Author Organization [facility] Address [address] [place] [phone] Phone Care Team Providers Care Aquaculture Farm Manager Name Role Phone Benito, Loida Levy MD Primary Care Provi larissa Encounter Details Date Type Department Care Team (Late st Contact Info) Description 11/23/2019 Ancillary Orders Virtual Department [address] [place] [address] Eber Bai MD [address] [place] [address], [address] [place] [address] [email or web address] Calculus of kidney Social History Tobacco Use [...] radiopaque urinary tract calculi visible. POS - [id number] Narrative 11/26/2019 9:42 AM EDT HISTORY: Right-sided [...] radiopaque urinary tract calculi visible. POS - [id number] Eber Bai MD IMG XR ABDOMEN Final [...] documented as of this encounter Care Teams Aquaculture Farm Manager Relationship Specialty Start Date End Date Benito, Loida Levy MD [address] [place] [address] PCP - General Family Medicine 08/22/17 documented as of this encounter Additional Source Comments The information contained in this document represents components of the legal health record. It is not the complete legal health record.[facility]
--- OUTSIDE RECORDS SUMMARY | 2025-06-20 08:38 | XMS_ITS | Encounter Summary ---
Author Organization [employer] Address [address] [facility] 7t [place] [address] Care Team Providers Care Speech Therapy Teacher Name Role Phone Loida Oliver MD Primary Care Provider [phone]- [phone] Reason for Referral * Consultation (Routine) - Authorized Specialty Diagnoses / Procedures Referred By Eddie conrad Referred To Contact Urology Diagnoses Hypogonadism in male Loida Oliver MD [address] [place] [address] Phone: tel: fax: [facility] Referral ID Status Reason Start Date Expiration Date Visits Requested Visits Authorized [id number] Authorized Specialty Services Required 04/29/2026 1 1 Encounter Details Date Type Department Care Team (Late st Contact Info) Description 04/29/2025 Orders Only [facility] [address] [place] [address] Loida Oliver MD [address] [place], [place] [phone] Hypogonadism in male (Primary Dx) Social History Tobacco Use Types Packs/Day Years Used Date Smoking Tobacco: Never Passive Smoke Exposure: Never Smokeless Tobacco: Never Depression Answer Date [...] as of this encounter Plan of Treatment Scheduled Referrals Name Type Priority Associated Diagnoses Orde r Schedule Referral to Urology Outpatient Referral Routine Hypogonadism in male Expected: 04/29/2025 (Approximate), Expires: 04/29/2026 documented as of this encounter Visit Diagnoses Diagnosis Hypogonadism in male- Primary documented in this encounter Additional Health Concerns Assessment Noted Time PHQ-9 Depression Total Score: 0 05/07/20 23 10:28 AM EST documented as of this encounter Care Teams Speech Therapy Teacher Relationship Specialty Start Date End Date Loida Oliver MD [address] [place] [address] PCP - General Family Medicine 06/30/18 Lele Hu II, MD [facility] [address] [facility] [address] [place] [phone] Pulmonary Disease 11/01/24 documented as of this encounter
--- OUTSIDE RECORDS SUMMARY | 2025-06-20 08:38 | XMS_ITS | Encounter Summary ---
Author Organization [facility] Address [address] [place] [phone] Phone Care Team Providers Care General Medical Practitioner Name Role Phone Loida Oliver MD Primary Care Provi larissa Encounter Details Date Type Department Care Team (Late st Contact Info) Description 09/12/2017 Transcribe Orders [facility] Phle[facility] Main [address] [place], [place] [phone] Loida Oliver MD [address] [place] [address] [phone] Hyperlipidemia, unspecified hyperlipidemia type (Primary Dx); Obstructive [...] EDT) PSA 0.65 0 - 4.00 ng/mL [facility] Blood 09/12/2017 8:21 AM EDT 09/12/2017 8:25 AM EDT us Loida Oliver MD LAB BLOOD BKR ORDER PRABHJOT Final Result Performing Organization Address City/[facility]/ZIP Co de Phone Number [address] [phone] * HIV-1/2 antigen/antibody (09/12/2017 8:21 AM EDT) HIV Antibod(ies) NON-REACTI VE NON-REACTI VE [facility] HIV-1 ANTIGEN NON-REACTI VE NON-REACTI VE [facility] Blood 09/12/2017 8:21 AM EDT 09/12/2017 8:26 AM EDT us Loida Oliver MD LAB BLOOD BKR ORDER PRABHJOT Final Result Performing Organization Address [facility] Co de Phone Number [address] [phone] * Comprehensive metabolic panel (09/12/2017 8:21 AM EDT) SODIUM 142 133 - 146 mmol/L [facility] POTASSIUM 4.1 3.3 - 5.1 mmol/L [facility] CHLORIDE 103 96 - 108 mmol/L [facility] CO2 26 21 - 35 mmol/L [facility] BUN 15 6 - 19 mg/dL [facility] CREATININE 1.10 0.5 - 1.5 mg/dL [facility] GLUCOSE 83 70 - 99 mg/dL [facility] ALBUMIN 4.3 3.9 - 4.8 g/dL [facility] TOTAL PROTEIN 7.8 6.5 - 8.0 g/dL [facility] CALCIUM 9.2 8.4 - 10.3 mg/dL [facility] ALKALINE PHOSPHATASE 62 39 - 117 U/L [facility] TOTAL BILIRUBIN 0.4 0.0 - 1.2 mg/dL [facility] AST 27 0 - 37 U/L [facility] ALT 34 0 - 40 U/L [facility] GLOBULIN 3.5 1 - 4.8 g/dL [facility] EGFR 82 >59 mL/min/1.7 3m2 [facility] Comment:If patient is black, multiply result by 1.159. The eGFR calculation has changed from the MDRD equation to the CKD-EPI equation as of September 02, 2017. ANION GAP 17 10 - 20 mmol/L [facility] Blood 09/12/2017 8:21 AM EDT 09/12/2017 8:26 AM EDT us Loida Oliver MD LAB BLOOD BKR ORDER PRABHJOT Final Result Performing Organization Address City/[facility]/ZIP Co de Phone Number [address] [phone] * (ABNORMAL) Lipid panel (09/12/2017 8:21 AM EDT) HDL 38 mg/dL [facility] Comment: Interpretation: Risk Level Males Decreased >45 mg/dL Average 40-45 mg/dL Increased <40 mg/dL CHOLESTEROL 245(H) 0 - 240 mg/dL [facility] TRIGLYCERIDES 526(H) 30 - 160 mg/dL [facility] LDL NOT CALCULATED 50 - 129 mg/dL [facility] Comment: Unable to calculate due to elevated TRIG of greater than 400. A measured LDL will be performed. CARDIAC RISK RATIO 6.4(H) 3.4 - 5.0 [facility] Blood 09/12/2017 8:21 AM EDT 09/12/2017 8:26 AM EDT us Loida Oliver MD LAB BLOOD BKR ORDER PRABHJOT Final Result Performing Organization Address City/[facility]/ZIP Co de Phone Number [address] [phone] * Estradiol (09/12/2017 8:21 AM EDT) ESTRADIOL 23 pg/mL [facility] Comment:MALE <5-61 pG/m Blood 09/12/2017 8:21 AM EDT 09/12/2017 8:26 AM EDT Loida Oliver MD LAB BLOOD BKR ORDER PRABHJOT Final Result [facility] [address] [place] [address] documented in this encounter Visit Diagnoses Diagnosis [...] documented as of this encounter Care Teams General Medical Practitioner Relationship Specialty Start Date End Date Loida Oliver MD [address] [place] [phone] PCP - General Family Medicine 08/22/17 documented as of this encounter Additional Source Comments The information contained in this document represents components of the legal health record. It is not the complete legal health record.[facility]
--- OUTSIDE RECORDS SUMMARY | 2025-06-20 08:38 | XMS_ITS | Encounter Summary ---
Author Organization [facility] Address [address] [place] [phone] Phone Care Team Providers Care Cargo Broker Name Role Phone Loida Oliver MD Primary Care Provi larissa Encounter Details Date Type Department Care Team (Late st Contact Info) Description 12/01/2019 Procedure Pass OR Admitting Dept - Virtual Department [address] [place] [address] Social History Tobacco Use Types Packs/Day Years [...] documented as of this encounter Care Teams Cargo Broker Relationship Specialty Start Date End Date Loida Oliver MD [address] [place] [address] PCP - General Family Medicine 08/22/17 documented as of this encounter Additional Source Comments The information contained in this document represents components of the legal health record. It is not the complete legal health record.[facility]
--- OUTSIDE RECORDS SUMMARY | 2025-06-20 08:38 | XMS_ITS | Encounter Summary ---
Author Organization [facility] Address [address] [place] [address] [place] [phone] Phone Care Team Providers Care Factory Hand Name Role Phone Loida Oliver MD Primary Care Provi larissa Encounter Details Date Type Department Care Team (Late st Contact Info) Description 04/02/2018 Transcribe Orders [facility] Phleb Main [address] [place], [place] [phone] Loida Oliver MD [address] [place], [place] [phone] Hyperlipidemia, unspecified hyperlipidemia type (Primary Dx) Social [...] (04/02/2018 8:48 AM EDT) HDL 51 mg/dL [facility] Comment: Interpretation: Risk Level Males Decreased >45 mg/dL Average 40-45 mg/dL Increased <40 mg/dL CHOLESTEROL 215 0 - 240 mg/dL [facility] TRIGLYCERIDES 153 30 - 160 mg/dL [facility] LDL 133(H) 50 - 129 mg/dL [facility] Comment: LDL levels in terms of risk for coronary heart disease: <100 mg/dL: Optimal 100-129 mg/dL: Near or above optimal 130-159 mg/dL: Borderline high 160-189 mg/dL: High >190 mg/dL: Very High CARDIAC RISK RATIO 4.2 3.4 - 5.0 [facility] Blood 04/02/2018 8:48 AM EDT 04/02/2018 8:50 AM EDT us Loida Oliver MD LAB BLOOD BKR ORDER PRABHJOT Final Result [address] [address] documented in this encounter Visit Diagnoses Diagnosis Hyperlipidemia, unspecified hyperlipidemia type- Primary documented in this encounter Additional Health Concerns Infection Onset Date Last Indicated Resolved Time CoV-Risk 07/17/2020 07/17/2020 07/27/2020 1:24 AM EST CoV-Risk 06/16/2022 06/16/2022 06/27/2022 1:22 AM EST CoV-Risk 09/28/2024 09/28/2024 10/09/2024 1:22 AM EDT CoV-Risk 03/04/2025 03/04/2025 03/15/2025 1:21 AM EDT documented as of this encounter Care Teams Factory Hand Relationship Specialty Start Date End Date Loida Oliver MD [address] [place] [phone] PCP - General Family Medicine 08/22/17 documented as of this encounter Additional Source Comments The information contained in this document represents components of the legal health record. It is not the complete legal health record.[facility]
--- OUTSIDE RECORDS SUMMARY | 2025-06-20 08:38 | XMS_ITS | Encounter Summary ---
Author Organization [employer] Address [address] [facility] 7t [place] [address] Care Team Providers Care Oven Technician Name Role Phone Loida Oliver MD Primary Care Provider +1- [phone] Encounter Details Date Type Department Care Team ([facility] st Contact Info) Description 11/05/2023 Orders Only [facility] [address] [place], [place] [phone] Loida Oliver MD [address] [place], [place] [phone] Other fatigue (Primary Dx); Acute anxiety; Routine [...] AM EDT) Hepatitis C Antibody Nonreactive Nonreactive [facility] Comment:Antibodies to HCV no t detected; does not exclude early acuteHCV infection. Blood Venous blood specimen / Unknown 11/19/2023 8:16 AM EDT 11/19/2023 11:04 AM EDT us Loida Oliver MD LAB BLOOD ORDERABLES Final Result [facility] [address] [place] [phone] * HIV-1/2 Antigen and Antibodies, Fourth Generation, with Reflexes (11/19/2023 8:16 AM EDT) Pathologist [facility] HIV AB/AG Nonreactive Nonreactive [facility] Comment:HIV-1 p24 Ag and/or HIV-1/HIV-2 Ab not detected.A test result that is nonreactive does not exclude thepossibility of exposure to or infection with HIV-1 and/orHIV-2. Nonreactive results in this assay for individualswith prior exposure to HIV-1 and/or HIV-2 may be due toantigen and antibody levels that are below the limit ofdetection of this assay.The [employer] HIV Ag/Ab Combo assay result andsupplemental assay results should be interpreted inconjunction with the patient's clinical presentation,history and other laboratory results. If the results areinconsistent with clinical evidence, additional testing issuggested to confirm the result. Blood Venous blood specimen / Unknown 11/19/2023 8:16 AM EDT 11/19/2023 11:04 AM EDT Loida Oliver MD LAB BLOOD ORDERABLES Final Result Performing Organization Address [facility]/ZIP Co de Phone Number [facility] [address] [place] [phone] * Vitamin D, 25-Hydroxy, Total, Immunoassay (11/19/2023 8:16 AM EDT) Vitamin D 25-OH Total 62.5 >30 ng/mL [facility] Comment:Health Based Referen ce Values*< 20 ng/mL Rsikonstj51-75 ng/mL Insufficient> 30 ng/mL Sufficient*Atiya SANCHES. N [...] BLOOD ORDERABLES Final Result Performing Organization Address [facility]/ZIP Co de Phone Number [facility] [address] [place] [phone] * CBC auto differential (11/19/2023 8:16 AM EDT) Neutrophils Percent Auto 50.2 45 - 73 % [facility] Imm Gran Pct Auto 0.4 0.0 - 0.4 % [facility] Lymphocytes Percent Auto 38.6 20 - 40 % [facility] Monocytes Percent Auto 6.3 2 - 11 % [facility] Eosinophils Percent Auto 3.6 0 - 4 % [facility] Basophils Percent Auto 0.9 0 - 2 % [facility] Neutrophils Absolute Auto 2.3 2.0 - 8.3 x10*3/uL [facility] Imm Gran Abs Auto 0.02 0.00 - 0.03 X10*3/uL [facility] Lymphocytes Absolute Auto 1.7 1.2 - 4.9 X10*3/uL [facility] Monocytes Absolute Auto 0.3 0.1 - 1.2 X10*3/uL [facility] Eosinophils Absolute Auto 0.2 0.0 - 0.4 X10*3/uL [facility] Basophils Absolute Auto 0.0 0.0 - 0.2 X10*3/uL [facility] Blood Venous blood specimen / Unknown 11/19/2023 8:16 AM EDT 11/19/2023 11:04 AM EDT Loida Oliver MD LAB BLOOD ORDERABLES Final Result Performing Organization Address [facility]/ZIP Co de Phone Number [facility] [address] [place] [phone] * TSH with Reflex to Free T4 (11/19/2023 8:16 AM EDT) Pathologist [facility] TSH reflex Free T4 1.26 0.32 - 4.0 uIU/mL [facility] Blood 11/19/2023 8:16 AM EDT 11/19/2023 11:04 AM EDT Loida Oliver MD LAB BLOOD ORDERABLES Final Result Performing Organization Address City/[facility]/ZIP Co de Phone Number [facility] [address] [place] [phone] * (ABNORMAL) Basic Metabolic Panel (11/19/2023 8:16 AM EDT) Pathologist [facility] Sodium 142 135 - 145 mmol/L [facility] Potassium 4.7 3.3 - 5.1 mmol/L [facility] Chloride 106 96 - 108 mmol/L [facility] Carbon Dioxide 27 22 - 29 mmol/L [facility] Anion Gap 14 12 - 20 [facility] Urea Nitrogen (BUN) 19(H) 9 - 16 mg/dL [facility] Creatinine, Serum 0.95 0.5 - 1.4 mg/dL [facility] Estimated Glomerular Filt Rate >60 [facility] Comment:NOTE: For -Am erican individuals, multiply the result by 1.210.Chronic Kidney Disease: Estimated GFR < 60 mL/min/1.73m3Hfqfop Kidney Disease: Estimated GFR < 15 mL/min/1.73m2 Glucose 96 60 - 115 mg/dL [facility] Calcium 9.6 8.4 - 10.2 mg/dL [facility] Blood Venous blood specimen / Unknown 11/19/2023 8:16 AM EDT 11/19/2023 11:04 AM EDT us Loida Oliver MD LAB BLOOD ORDERABLES Final Result [facility] [address] [place] [phone] [phone] * (ABNORMAL) Lipid Panel, Standard (11/19/2023 8:16 AM EDT) Triglycerides 130 <150 mg/dL [facility] Comment:Desirable Triglyceri de: less than 150 mg/dLBorderline High Triglyceride 150-199 mg/dLHigh Triglyceride: 200-499 mg/dLVery High Triglyceride: greater than or equal to 5OO mg/dL Cholesterol 184 <200 mg/dL [facility] Comment:Desirable Cholestero l: less than 200 mg/dLBorderline High Cholesterol: 200-239 mg/dLHigh Cholesterol: greater than 239 mg/dL LDL Cholesterol Calculated 112(H) <100 mg/dL [facility] Comment:Desirable LDL: less than 100 mg/dLNear Optimal/Above Optimal LDL: 110- 129 mg/dLBorderline High LDL: 130-159 mg/dLHigh LDL: 160-189 mg/dLVery High LDL: greater than or equal to 190 mg/dL HDL Cholesterol 46 >40 mg/dL [facility] Comment:Desirable HDL: great er than 40 mg/dL Note: This HDL assay may give artificially low results in patients with liver disease. Blood Venous blood specimen / Unknown 11/19/2023 8:16 AM EDT 11/19/2023 11:04 AM EDT Loida Oliver MD LAB BLOOD ORDERABLES Final Result Performing Organization Address City/[facility]/ZIP Co de Phone Number [facility] [address] [place] [phone] * Magnesium (11/19/2023 8:16 AM EDT) Magnesium 2.2 1.6 - 2.6 mg/dL [facility] Blood Venous blood specimen / Unknown 11/19/2023 8:16 AM EDT 11/19/2023 11:04 AM EDT Loida Oliver MD LAB BLOOD ORDERABLES Final Result Performing Organization Address [facility] de Phone Number [facility] [address] [place] [phone] * Testosterone, Total, males (Adult), IA (11/19/2023 8:16 AM EDT) Testosterone, Total 329 250 - 1100 ng/dL [facility] Comment:For additional infor laura, please refer tohttp://[email or web address].[email or web address]/[email or web address](This link is being provided for informational/educational purposes only.)This test was developed and its analytical performancecharacteristics have been determined by [employer] [place], [place]. It hasnot been cleared or approved by the U.S. Food and DrugAdministration. This assay has been validated pursuantto the CLIA regulations and is used for clinicalpurposes.THIS TEST WAS PERFORMED AT:[employer]ah[employer] P[employer]atab[employer], Broker/[facility] [place] [phone] CHEEK MD,PHD Blood Venous blood specimen / Unknown 11/19/2023 8:16 AM EDT 11/19/2023 11:04 AM EDT Loida Oliver MD LAB BLOOD ORDERABLES Final Result Performing Organization Address City/[facility]/ZIP Co de Phone Number [facility] [address] [place] [phone] * (ABNORMAL) CBC (11/19/2023 8:16 AM EDT) White Blood Count 4.5(L) 4.8 - 10.8 X10*3/uL [facility] Red Blood Count 5.12 4.60 - 5.80 X10*6/uL [facility] Hemoglobin 14.8 14.0 - 18.0 g/dl [facility] Hematocrit 44.7 42.0 - 52.0 % [facility] Mean Corpuscular Volume 87.3 80.0 - 98.0 fL [facility] Mean Corpuscular Hemoglobin 28.9 27.0 - 33.0 pg [facility] Mean Corpuscular HGB Conc 33.1 31.0 - 36.0 g/dl [facility] Red Cell Distribution Width 12.2 11.0 - 16.0 % [facility] Platelet Count 281 160 - 400 X10*3/uL [facility] Mean Platelet Volume 9.5 9.4 - 12.4 [facility] NRBC Pct Auto 0.0 0.0 - 0.2 /100WBC [facility] NRBC Abs Auto 0.000 0.0 - 0.012 X10*3/uL [facility] Blood Venous blood specimen / Unknown 11/19/2023 8:16 AM EDT 11/19/2023 11:04 AM EDT Loida Oliver MD LAB BLOOD ORDERABLES Final Result [facility] [address] [place] [phone] [phone] * (ABNORMAL) Hepatic Function Panel (11/19/2023 8:16 AM EDT) Bilirubin, Total 0.5 0.0 - 1.0 mg/dL [facility] Bilirubin, Direct 0.2 0.0 - 0.5 mg/dL [facility] Aspartate Amino Transferase 23 5 - 37 U/L [facility] Alanine Aminotransferase 20 0 - 40 U/L [facility] Total Protein 8.2(H) 6.5 - 8.0 g/dL [facility] Albumin Level 4.5 3.5 - 5.0 g/dL [facility] Alkaline Phosphatase 63 39 - 117 U/L [facility] Blood Venous blood specimen / Unknown 11/19/2023 8:16 AM EDT 11/19/2023 11:04 AM EDT us Loida Oliver MD LAB BLOOD ORDERABLES Final Result Performing Organization Address [facility] de Phone Number [facility] [address] [place] [address] [phone] documented in this encounter Visit Diagnoses [...] documented as of this encounter Care Teams Oven Technician Relationship Specialty Start Date End Date Loida Oliver MD [address] [place] [phone] PCP - General Family Medicine 06/30/18 Lele Hu II, MD [facility] [address] [facility] [address] [place] [address] Pulmonary Disease 11/01/24 documented as of this encounter
[2025-06-20 11:32] LABS: Alanine Aminotransferase 44 U/L (0-40); Albumin Level 4.6 g/dL (3.5-5.0); Alkaline Phosphatase 55 U/L (39-117); Aspartate Amino Transferase 36 U/L (5-37); Cholesterol 215 mg/dL (<200); HDL Cholesterol 43 mg/dL (>40); Total Protein 7.5 g/dL (6.5-8.0); Triglycerides 191 mg/dL (<150)
== END 2025-06-20 08:27 | disposition home or self-care (01) ==
LOC: HO.HHCL 08:26
PROVIDERS: PCP Family Medicine; Visit Provider Family Medicine
DX: E29.1 Testicular hypofunction (principal); R74.01 Elevation of levels of liver transaminase levels
CPT/HCPCS: 36415; 80061; 80076; 84402; 84403